=== PATIENT | female | born 1975 | race Caucasian/White ===

== ENCOUNTER 2018-06-24 13:07 | Emergency (ER) | payer OTHER ==
[~2018-06-24] VITALS: Ht 170.2 cm; Wt 80.7 kg
--- OUTSIDE RECORDS SUMMARY | 2018-06-24 13:12 | XMS REPORT | Clinical Summary ---
Author Author Admin, E Organization [facility] Address Unknown Phone Unavailable Allergies, Adverse Reactions, Alerts Allergy Name Reaction Description Start Date Severity Status Provider PENICILLIN swelling Critical Active Juan Diego Finley MD Conditions or Problems Problem Name Problem Code Onset Date Status Entry Date Provider Comment Standard Description Annotate Hypertension, essential 401.9 Active Al Medel MD Unspecified essential hypertension Allergic rhinitis, seasonal 477.0 Active Al Medel MD Allergic rhinitis due to pollen Migraine headache 346.90 Active Al Medel MD Migraine, unspecified, without mention of intractable migraine, without mention of status migrainosus Bipolar disorder 296.80 Active Al Medel MD Bipolar disorder, unspecified Knee pain, left 719.46 Active Al Medel MD Pain in joint involving lower leg HEALTH MAINTENANCE EXAM V70.0 Active Al Medel MD Routine general medical examination at a health care facility Bronchitis 490 Active Al Medel MD Bronchitis, not specified as acute or chronic ROUTINE GYNECOLOGICAL EXAMINATION V72.31 Active Al Medel MD Routine gynecological examination Vesicovaginal fistula 619.0 Active Juan Diego Finley MD Urinary-genital tract fistula, female Medication List Medication Instructions Start Date Stop Date Generic Name NDC Status Provider Patient Instruction CELEXA 10 MG ORAL TABLET 1 tablet by mouth daily CITALOPRAM HYDROBROMIDE 42077582231 Active Juan Diego Finley MD Active AMLODIPINE BESYLATE 10 MG ORAL TABLET 1 tablet by mouth daily AMLODIPINE BESYLATE 87877741609 Active Juan Diego Finley MD Active ALLOPURINOL 300 MG ORAL TABLET 1 tab by mouth daily ALLOPURINOL 28526466360 Active Juan Diego Finley MD Active NICOTINE 14 MG/24HR TRANSDERMAL PATCH 24 HOUR 1 patch daily - on in AM, off at HS - for smoking cessation NICOTINE 02396348124 Active Juan Diego Finley MD Active DOCUSATE SODIUM 100 MG ORAL CAPSULE 1 po BID DOCUSATE SODIUM 96365205627 Active Juan Diego Finley MD Active PHENAZOPYRIDINE HCL 100 MG ORAL TABLET 1 tab by mouth every 6 hour prn 03/30 PHENAZOPYRIDINE HCL 74481541721 Active Juan Diego Finley MD Active PROAIR HFA 108 (90 Base) MCG/ACT INHALATION AEROSOL SOLUTION 2 puffs four times a day as needed ALBUTEROL SULFATE 82654573313 Active Juan Diego Finley MD Active ALPRAZOLAM 0.25 MG ORAL TABLET 1 tablet by mouth twice a day as needed for stress ALPRAZOLAM 26536473105 Active Juan Diego Finley MD Active LISINOPRIL 20 MG ORAL TABLET 1 tablet by mouth daily LISINOPRIL 27479259894 No Longer Active Juan Diego Finley MD Active MOBIC 15 MG ORAL TABLET 1 tablet by mouth daily for knee pain MELOXICAM 87931784517 No Longer Active Juan Diego Finley MD Active GUAIFENESIN-CODEINE 100-10 MG/5ML ORAL SYRUP 1 tsp PO q6h PRN cough GUAIFENESIN-CODEINE 72583581245 No Longer Active Juan Diego Finley MD Active NICODERM CQ 21 MG/24HR TRANSDERMAL PATCH 24 HOUR Apply 1 patch daily NICOTINE 96044836075 No Longer Active Juan Diego Finley MD Active FLAGYL 500 MG ORAL TABLET Take 1 tablet BID X 7 days. METRONIDAZOLE 89136133091 No Longer Active Juan Diego Finley MD Active ZITHROMAX Z-NYLA 250 MG ORAL TABLET 2 today, then 1 daily for 4 days AZITHROMYCIN 61752292306 No Longer Active Al Medel MD Active FLAGYL 500 MG ORAL TABLET Take 1 tablet BID X 7 days. FLAGYL 500 MG ORAL TABLET 692802 METRONIDAZOLE Inactive NICODERM CQ 21 MG/24HR TRANSDERMAL PATCH 24 HOUR Apply 1 patch daily NICODERM CQ 21 MG/24HR TRANSDERMAL PATCH 24 HOUR NICOTINE Inactive GUAIFENESIN-CODEINE 100-10 MG/5ML ORAL SYRUP 1 tsp PO q6h PRN cough GUAIFENESIN-CODEINE 100-10 MG/5ML ORAL SYRUP 502155 GUAIFENESIN-CODEINE Inactive MOBIC 15 MG ORAL TABLET 1 tablet by mouth daily for knee pain MOBIC 15 MG ORAL TABLET 346873 MELOXICAM Inactive LISINOPRIL 20 MG ORAL TABLET 1 tablet by mouth daily LISINOPRIL 20 MG ORAL TABLET 400733 LISINOPRIL Inactive ZITHROMAX Z-NYLA 250 MG ORAL TABLET 2 today, then 1 daily for 4 days ZITHROMAX Z-NYLA 250 MG ORAL TABLET 038042 AZITHROMYCIN Inactive Vital Signs Date Name Value Unit Range Description blood pressure, diastolic 86 mm[Hg] BP romero blood pressure, systolic 128 mm[Hg] BP sys pulse rate E&M 74 /min Heart rate temperature E&M 97.8 [degF] Body temperature weight E&M 182 [lb_av] Weight Measured blood pressure, diastolic 88 mm[Hg] BP romero blood pressure, systolic 130 mm[Hg] BP sys pulse rate E&M 76 /min Heart rate temperature E&M 97.5 [degF] Body temperature weight E&M 182 [lb_av] Weight Measured Encounters Code Encounter Date Provider Facility CPT-96012 Level 3 Est. Patient 15:21:03 IMAGING MANAGER Juan Diego Finley MD [facility] CPT-70428 Level 2 Est. Patient 14:27:15 RENE Finley MD [facility] CPT-28555 Level 3 New Patient 15:33:11 CDT Juan Diego Finley MD [facility] CPT-06296 Level 3 Est. Patient 10:22:10 CDT Al Medel MD [facility] CPT-36638 Level 4 New Patient 11:23:27 CDT Al Medel MD [facility] Procedures Code Procedure Name Date Entry Date Standard Description CPT-31672 SP Tube Change 15:21:03 IMAGING MANAGER CPT-41688 SP Tube Change 14:27:16 IMAGING MANAGER CPT-47912 SP Tube Change 11:01:05 IMAGING MANAGER CPT-02865 Cystoscopy 15:33:11 CDT
--- OUTSIDE RECORDS SUMMARY | 2018-06-24 13:12 | XMS REPORT | Clinical Summary ---
Author Author Admin, E Organization [facility] Address Unknown Phone Unavailable Allergies, Adverse Reactions, [...] Generic Name NDC Status Provider Patient Instruction AMLODIPINE BESYLATE 10 MG ORAL TABLET 1 tablet by mouth daily AMLODIPINE BESYLATE 16040370397 Active Juan Diego Finley MD Active ALLOPURINOL 300 MG ORAL TABLET 1 tab by mouth daily ALLOPURINOL 39508858331 Active Juan Diego Finley MD Active NICOTINE 14 MG/24HR TRANSDERMAL PATCH 24 HOUR 1 patch daily - on in AM, off at HS - for smoking cessation NICOTINE 06630295471 Active Juan Diego Finley MD Active DOCUSATE SODIUM 100 MG ORAL CAPSULE 1 po BID DOCUSATE SODIUM 88012170531 Active Juan Diego Finley MD Active PHENAZOPYRIDINE HCL 100 MG ORAL TABLET 1 tab by mouth every 6 hour prn 03/30 PHENAZOPYRIDINE HCL 42237966389 Active Juan Diego Finley MD Active PROAIR HFA 108 (90 Base) MCG/ACT INHALATION AEROSOL SOLUTION 2 puffs four times a day as needed ALBUTEROL SULFATE 35256914680 Active Juan Diego Finley MD Active ALPRAZOLAM 0.25 MG ORAL TABLET 1 tablet by mouth twice a day as needed for stress ALPRAZOLAM 46648024847 Active Juan Diego Finley MD Active LISINOPRIL 20 MG ORAL TABLET 1 tablet by mouth daily LISINOPRIL 23924673099 No Longer Active Juan Diego Finley MD Active MOBIC 15 MG ORAL TABLET 1 tablet by mouth daily for knee pain MELOXICAM 79372148797 No Longer Active Juan Diego Finley MD Active GUAIFENESIN-CODEINE 100-10 MG/5ML ORAL SYRUP 1 tsp PO q6h PRN cough GUAIFENESIN-CODEINE 01044284806 No Longer Active Juan Diego Finley MD Active NICODERM CQ 21 MG/24HR TRANSDERMAL PATCH 24 HOUR Apply 1 patch daily NICOTINE 41664179283 No Longer Active Juan Diego Finley MD Active FLAGYL 500 MG ORAL TABLET Take 1 tablet BID X 7 days. METRONIDAZOLE 79431080128 No Longer Active Juan Diego Finley MD Active ZITHROMAX Z-NYLA 250 MG ORAL TABLET 2 today, then 1 daily for 4 days AZITHROMYCIN 75212707287 No Longer Active Al Medel MD Active FLAGYL 500 MG ORAL TABLET Take 1 tablet BID X 7 days. FLAGYL 500 MG ORAL TABLET 823956 METRONIDAZOLE Inactive NICODERM CQ 21 MG/24HR TRANSDERMAL PATCH 24 HOUR Apply 1 patch daily NICODERM CQ 21 MG/24HR TRANSDERMAL PATCH 24 HOUR 304556 NICOTINE Inactive GUAIFENESIN-CODEINE 100-10 MG/5ML ORAL SYRUP 1 tsp PO q6h PRN cough GUAIFENESIN-CODEINE 100-10 MG/5ML ORAL SYRUP 789309 GUAIFENESIN-CODEINE Inactive MOBIC 15 MG ORAL TABLET 1 tablet by mouth daily for knee pain MOBIC 15 MG ORAL TABLET 047646 MELOXICAM Inactive LISINOPRIL 20 MG ORAL TABLET 1 tablet by mouth daily LISINOPRIL 20 MG ORAL TABLET 597331 LISINOPRIL Inactive ZITHROMAX Z-NYLA 250 MG ORAL TABLET 2 today, then 1 daily for 4 days ZITHROMAX Z-NYLA 250 MG ORAL TABLET 167038 AZITHROMYCIN Inactive Vital Signs Date Name Value [...] Measured Encounters Code Encounter Date Provider Facility CPT-67882 Level 2 Est. Patient 14:27:15 IMAGING ADMINISTRATOR Juan Diego Finley MD [facility] CPT-68989 Level 3 New Patient 15:33:11 CDT Juan Diego Finley MD [facility] CPT-88928 Level 3 Est. Patient 10:22:10 CDT Al Medel MD [facility] CPT-47997 Level 4 New Patient 11:23:27 CDT Al Medel MD [facility] Procedures Code Procedure Name Date Entry Date Standard Description CPT-54020 SP Tube Change 14:27:16 IMAGING ADMINISTRATOR CPT-54636 SP Tube Change 11:01:05 IMAGING ADMINISTRATOR CPT-21803 Cystoscopy 15:33:11 CDT
--- OUTSIDE RECORDS SUMMARY | 2018-06-24 13:12 | XMS REPORT | Clinical Summary ---
Author Author Admin, E Organization [facility] Address Unknown Phone Unavailable Allergies, Adverse [...] 1 tablet by mouth daily CITALOPRAM HYDROBROMIDE 28507866549 Active Juan Diego Finley MD Active AMLODIPINE BESYLATE 10 MG ORAL TABLET 1 tablet by mouth daily AMLODIPINE BESYLATE 94243459959 Active Juan Diego Finley MD Active ALLOPURINOL 300 MG ORAL TABLET 1 tab by mouth daily ALLOPURINOL 68000946609 Active Juan Diego Finley MD Active NICOTINE 14 MG/24HR TRANSDERMAL PATCH 24 HOUR 1 patch daily - on in AM, off at HS - for smoking cessation NICOTINE 25337481502 Active Juan Diego Finley MD Active DOCUSATE SODIUM 100 MG ORAL CAPSULE 1 po BID DOCUSATE SODIUM 53128735153 Active Juan Diego Finley MD Active PHENAZOPYRIDINE HCL 100 MG ORAL TABLET 1 tab by mouth every 6 hour prn 03/30 PHENAZOPYRIDINE HCL 01435701364 Active Juan Diego Finley MD Active PROAIR HFA 108 (90 Base) MCG/ACT INHALATION AEROSOL SOLUTION 2 puffs four times a day as needed ALBUTEROL SULFATE 07166836577 Active Juan Diego Finley MD Active ALPRAZOLAM 0.25 MG ORAL TABLET 1 tablet by mouth twice a day as needed for stress ALPRAZOLAM 48846622829 Active Juan Diego Finley MD Active LISINOPRIL 20 MG ORAL TABLET 1 tablet by mouth daily LISINOPRIL 74593059993 No Longer Active Juan Diego Finley MD Active MOBIC 15 MG ORAL TABLET 1 tablet by mouth daily for knee pain MELOXICAM 19478776240 No Longer Active Juan Diego Finley MD Active GUAIFENESIN-CODEINE 100-10 MG/5ML ORAL SYRUP 1 tsp PO q6h PRN cough GUAIFENESIN-CODEINE 42940243814 No Longer Active Juan Diego Finley MD Active NICODERM CQ 21 MG/24HR TRANSDERMAL PATCH 24 HOUR Apply 1 patch daily NICOTINE 53808535769 No Longer Active Juan Diego Finley MD Active FLAGYL 500 MG ORAL TABLET Take 1 tablet BID X 7 days. METRONIDAZOLE 57311377065 No Longer Active Juan Diego Finley MD Active ZITHROMAX Z-NYLA 250 MG ORAL TABLET 2 today, then 1 daily for 4 days AZITHROMYCIN 68444242545 No Longer Active Al Medel MD Active FLAGYL 500 MG ORAL TABLET Take 1 tablet BID X 7 days. FLAGYL 500 MG ORAL TABLET 917171 METRONIDAZOLE Inactive NICODERM CQ 21 MG/24HR TRANSDERMAL PATCH 24 HOUR Apply 1 patch daily NICODERM CQ 21 MG/24HR TRANSDERMAL PATCH 24 HOUR NICOTINE Inactive GUAIFENESIN-CODEINE 100-10 MG/5ML ORAL SYRUP 1 tsp PO q6h PRN cough GUAIFENESIN-CODEINE 100-10 MG/5ML ORAL SYRUP 445072 GUAIFENESIN-CODEINE Inactive MOBIC 15 MG ORAL TABLET 1 tablet by mouth daily for knee pain MOBIC 15 MG ORAL TABLET 665844 MELOXICAM Inactive LISINOPRIL 20 MG ORAL TABLET 1 tablet by mouth daily LISINOPRIL 20 MG ORAL TABLET 748141 LISINOPRIL Inactive ZITHROMAX Z-NYLA 250 MG ORAL TABLET 2 today, then 1 daily for 4 days ZITHROMAX Z-NYLA 250 MG ORAL TABLET 321018 AZITHROMYCIN Inactive Vital Signs Date Name Value Unit Range Description blood pressure, diastolic 83 mm[Hg] BP romero blood pressure, systolic 125 mm[Hg] BP sys pulse rate E&M 73 /min Heart rate temperature E&M 97.5 [degF] Body temperature weight E&M 182 [lb_av] Weight Measured blood pressure, diastolic 86 mm[Hg] BP romero [...] Measured Encounters Code Encounter Date Provider Facility CPT-44707 Level 3 Est. Patient 15:21:03 SOCCER REFEREE Juan Diego Finley MD [facility] CPT-76893 Level 2 Est. Patient 14:27:15 SOCCER REFEREE Juan Diego Finley MD [facility] CPT-49096 Level 3 New Patient 15:33:11 CDT Juan Diego Finley MD [facility] CPT-73839 Level 3 Est. Patient 10:22:10 CDT Al Medel MD [facility] CPT-93240 Level 4 New Patient 11:23:27 CDT Al Medel MD [facility] Procedures Code Procedure Name Date Entry Date Standard Description CPT-93098 SP Tube Change 15:21:03 SOCCER REFEREE CPT-89825 SP Tube Change 14:27:16 SOCCER REFEREE CPT-69837 SP Tube Change 11:01:05 SOCCER REFEREE CPT-25376 Cystoscopy 15:33:11 CDT
--- OUTSIDE RECORDS SUMMARY | 2018-06-24 13:13 | XMS REPORT | Clinical Summary ---
Author Author Admin, E Organization [facility] Address Unknown Phone Unavailable Allergies, [...] Diego Finley MD Urinary-genital tract fistula, female Body Mass Index 30.0-30.9 Adult Active Juan Diego Finley MD Body Mass Index 30.0-30.9, adult Medication List Medication Instructions Start Date Stop Date Generic Name NDC Status Provider Patient Instruction ESTRADIOL 2 MG ORAL TABLET 1 tab once daily ESTRADIOL 90756320432 Active Juan Diego Finley MD Active ALPRAZOLAM 0.25 MG ORAL TABLET 1 tablet by mouth twice a day as needed for stress ALPRAZOLAM 11332977027 No Longer Active Juan Diego Finley MD Active PHENAZOPYRIDINE HCL 100 MG ORAL TABLET 1 tab by mouth every 6 hour prn 03/30 PHENAZOPYRIDINE HCL 78959746497 No Longer Active Juan Diego Finley MD Active NICOTINE 14 MG/24HR TRANSDERMAL PATCH 24 HOUR 1 patch daily - on in AM, off at HS - for smoking cessation NICOTINE 20370528265 No Longer Active Juan Diego Finley MD Active DOCUSATE SODIUM 100 MG ORAL CAPSULE 1 po BID DOCUSATE SODIUM 46212104896 No Longer Active Juan Diego Finley MD Active CELEXA 10 MG ORAL TABLET 1 tablet by mouth daily CITALOPRAM HYDROBROMIDE 74618494143 No Longer Active Juan Diego Finley MD Active AMLODIPINE BESYLATE 10 MG ORAL TABLET 1 tablet by mouth daily AMLODIPINE BESYLATE 45542919022 Active Juan Diego Finley MD Active ALLOPURINOL 300 MG ORAL TABLET 1 tab by mouth daily ALLOPURINOL 52346432649 Active Juan Diego Finley MD Active PROAIR HFA 108 (90 Base) MCG/ACT INHALATION AEROSOL SOLUTION 2 puffs four times a day as needed ALBUTEROL SULFATE 19575991036 Active Juan Diego Finley MD Active LISINOPRIL 20 MG ORAL TABLET 1 tablet by mouth daily LISINOPRIL 82617419869 No Longer Active Juan Diego Finley MD Active MOBIC 15 MG ORAL TABLET 1 tablet by mouth daily for knee pain MELOXICAM 84096215594 No Longer Active Juan Diego Finley MD Active GUAIFENESIN-CODEINE 100-10 MG/5ML ORAL SYRUP 1 tsp PO q6h PRN cough GUAIFENESIN-CODEINE 86901958304 No Longer Active Juan Diego Finley MD Active NICODERM CQ 21 MG/24HR TRANSDERMAL PATCH 24 HOUR Apply 1 patch daily NICOTINE 69833469852 No Longer Active Juan Diego Finley MD Active FLAGYL 500 MG ORAL TABLET Take 1 tablet BID X 7 days. METRONIDAZOLE 62113856361 No Longer Active Juan Diego Finley MD Active ZITHROMAX Z-NYLA 250 MG ORAL TABLET 2 today, then 1 daily for 4 days AZITHROMYCIN 40387052962 No Longer Active Al Medel MD Active FLAGYL 500 MG ORAL TABLET Take 1 tablet BID X 7 days. FLAGYL 500 MG ORAL TABLET 078877 METRONIDAZOLE Inactive NICODERM CQ 21 MG/24HR TRANSDERMAL PATCH 24 HOUR Apply 1 patch daily NICODERM CQ 21 MG/24HR TRANSDERMAL PATCH 24 HOUR 430168 NICOTINE Inactive GUAIFENESIN-CODEINE 100-10 MG/5ML ORAL SYRUP 1 tsp PO q6h PRN cough GUAIFENESIN-CODEINE 100-10 MG/5ML ORAL SYRUP 339012 GUAIFENESIN-CODEINE Inactive MOBIC 15 MG ORAL TABLET 1 tablet by mouth daily for knee pain MOBIC 15 MG ORAL TABLET 631862 MELOXICAM Inactive LISINOPRIL 20 MG ORAL TABLET 1 tablet by mouth daily LISINOPRIL 20 MG ORAL TABLET 506012 LISINOPRIL Inactive CELEXA 10 MG ORAL TABLET 1 tablet by mouth daily CELEXA 10 MG ORAL TABLET 160600 CITALOPRAM HYDROBROMIDE Inactive DOCUSATE SODIUM 100 MG ORAL CAPSULE 1 po BID DOCUSATE SODIUM 100 MG ORAL CAPSULE 8504766 DOCUSATE SODIUM Inactive NICOTINE 14 MG/24HR TRANSDERMAL PATCH 24 HOUR 1 patch daily - on in AM, off at HS - for smoking cessation NICOTINE 14 MG/24HR TRANSDERMAL PATCH 24 HOUR 346047 NICOTINE Inactive PHENAZOPYRIDINE HCL 100 MG ORAL TABLET 1 tab by mouth every 6 hour prn 03/30 PHENAZOPYRIDINE HCL 100 MG ORAL TABLET 0305554 PHENAZOPYRIDINE HCL Inactive ALPRAZOLAM 0.25 MG ORAL TABLET 1 tablet by mouth twice a day as needed for stress ALPRAZOLAM 0.25 MG ORAL TABLET 512805 ALPRAZOLAM Inactive ZITHROMAX Z-NYLA 250 MG ORAL TABLET 2 today, then 1 daily for 4 days ZITHROMAX Z-NYLA 250 MG ORAL TABLET 749970 AZITHROMYCIN Inactive Vital Signs Date Name Value Unit Range Description blood pressure, diastolic 71 mm[Hg] BP romero blood pressure, systolic 128 mm[Hg] BP sys height E&M 66.75 [in_us] Bdy height pulse rate E&M 72 /min Heart rate temperature E&M 98.8 [degF] Body temperature weight E&M 194 [lb_av] Weight Measured blood pressure, diastolic 83 mm[Hg] BP romero [...] Measured Encounters Code Encounter Date Provider Facility CPT-87697 Level 3 Est. Patient 14:30:00 EVER Finley MD [facility] CPT-22961 Level 3 Est. Patient 15:21:03 PROVIDER ENGAGEMENT EXECUTIVE Juan Diego Finley MD [facility] CPT-28736 Level 2 Est. Patient 14:27:15 PROVIDER ENGAGEMENT EXECUTIVE Juan Diego Finley MD [facility] CPT-05663 Level 3 New Patient 15:33:11 CDT Juan Diego Finley MD [facility] CPT-39922 Level 3 Est. Patient 10:22:10 CDT Al Medel MD [facility] CPT-31045 Level 4 New Patient 11:23:27 CDT Al Medel MD [facility] Procedures Code Procedure Name Date Entry Date Standard Description CPT-53345 SP Tube Change 15:21:03 PROVIDER ENGAGEMENT EXECUTIVE CPT-32234 SP Tube Change 14:27:16 PROVIDER ENGAGEMENT EXECUTIVE CPT-97823 SP Tube Change 11:01:05 PROVIDER ENGAGEMENT EXECUTIVE CPT-24973 Cystoscopy 15:33:11 CDT
--- OUTSIDE RECORDS SUMMARY | 2018-06-24 13:13 | XMS REPORT | Clinical Summary ---
Author Author Admin, E Organization [facility] Address Unknown Phone Unavailable Allergies, [...] 1 tablet by mouth daily CITALOPRAM HYDROBROMIDE 29900221159 Active Juan Diego Finley MD Active AMLODIPINE BESYLATE 10 MG ORAL TABLET 1 tablet by mouth daily AMLODIPINE BESYLATE 69447705162 Active Juan Diego Finley MD Active ALLOPURINOL 300 MG ORAL TABLET 1 tab by mouth daily ALLOPURINOL 85907272766 Active Juan Diego Finley MD Active NICOTINE 14 MG/24HR TRANSDERMAL PATCH 24 HOUR 1 patch daily - on in AM, off at HS - for smoking cessation NICOTINE 98915809282 Active Juan Diego Finley MD Active DOCUSATE SODIUM 100 MG ORAL CAPSULE 1 po BID DOCUSATE SODIUM 61709777647 Active Juan Diego Finley MD Active PHENAZOPYRIDINE HCL 100 MG ORAL TABLET 1 tab by mouth every 6 hour prn 03/30 PHENAZOPYRIDINE HCL 69110130680 Active Juan Diego Finley MD Active PROAIR HFA 108 (90 Base) MCG/ACT INHALATION AEROSOL SOLUTION 2 puffs four times a day as needed ALBUTEROL SULFATE 66896142044 Active Juan Diego Finley MD Active ALPRAZOLAM 0.25 MG ORAL TABLET 1 tablet by mouth twice a day as needed for stress ALPRAZOLAM 10398711077 Active Juan Diego Finley MD Active LISINOPRIL 20 MG ORAL TABLET 1 tablet by mouth daily LISINOPRIL 33086799387 No Longer Active Juan Diego Finley MD Active MOBIC 15 MG ORAL TABLET 1 tablet by mouth daily for knee pain MELOXICAM 61185779633 No Longer Active Juan Diego Finley MD Active GUAIFENESIN-CODEINE 100-10 MG/5ML ORAL SYRUP 1 tsp PO q6h PRN cough GUAIFENESIN-CODEINE 17052100153 No Longer Active Juan Diego Finley MD Active NICODERM CQ 21 MG/24HR TRANSDERMAL PATCH 24 HOUR Apply 1 patch daily NICOTINE 98521776137 No Longer Active Juan Diego Finley MD Active FLAGYL 500 MG ORAL TABLET Take 1 tablet BID X 7 days. METRONIDAZOLE 33882061817 No Longer Active Juan Diego Finley MD Active ZITHROMAX Z-NYLA 250 MG ORAL TABLET 2 today, then 1 daily for 4 days AZITHROMYCIN 18498541366 No Longer Active Al Medel MD Active FLAGYL 500 MG ORAL TABLET Take 1 tablet BID X 7 days. FLAGYL 500 MG ORAL TABLET 064827 METRONIDAZOLE Inactive NICODERM CQ 21 MG/24HR TRANSDERMAL PATCH 24 HOUR Apply 1 patch daily NICODERM CQ 21 MG/24HR TRANSDERMAL PATCH 24 HOUR NICOTINE Inactive GUAIFENESIN-CODEINE 100-10 MG/5ML ORAL SYRUP 1 tsp PO q6h PRN cough GUAIFENESIN-CODEINE 100-10 MG/5ML ORAL SYRUP 563157 GUAIFENESIN-CODEINE Inactive MOBIC 15 MG ORAL TABLET 1 tablet by mouth daily for knee pain MOBIC 15 MG ORAL TABLET 234324 MELOXICAM Inactive LISINOPRIL 20 MG ORAL TABLET 1 tablet by mouth daily LISINOPRIL 20 MG ORAL TABLET 582581 LISINOPRIL Inactive ZITHROMAX Z-NYLA 250 MG ORAL TABLET 2 today, then 1 daily for 4 days ZITHROMAX Z-NYLA 250 MG ORAL TABLET 215499 AZITHROMYCIN Inactive Vital Signs Date Name Value [...] Measured Encounters Code Encounter Date Provider Facility CPT-29122 Level 3 Est. Patient 15:21:03 [employer] SPRAY SUPERVISOR Juan Diego Finley MD [facility] CPT-70907 Level 2 Est. Patient 14:27:15 [employer]WN AND TREE SERVICE SPRAY SUPERVISOR Juan Diego Finley MD [facility] CPT-72180 Level 3 New Patient 15:33:11 CDT Juan Diego Finley MD [facility] CPT-15160 Level 3 Est. Patient 10:22:10 CDT Al Medel MD [facility] CPT-15524 Level 4 New Patient 11:23:27 CDT Al Medel MD [facility] Procedures Code Procedure Name Date Entry Date Standard Description CPT-23293 SP Tube Change 15:21:03 [employer] AND [employer] SERVICE SPRAY SUPERVISOR CPT-27819 SP Tube Change 14:27:16 LA[employer] AND [employer] SERVICE SPRAY SUPERVISOR CPT-00365 SP Tube Change 11:01:05 LA[employer] AND TREE SERVICE SPRAY SUPERVISOR CPT-09636 Cystoscopy 15:33:11 CDT
--- OUTSIDE RECORDS SUMMARY | 2018-06-24 13:13 | XMS REPORT | Clinical Summary ---
Author Author Admin, E Organization [facility] Address Unknown Phone Unavailable Allergies, Adverse Reactions, Alerts Allergy Name Reaction Description Start Date Severity Status Provider PENICILLIN swelling Critical Active Juan Diego Fniley MD Conditions or Problems Problem Name Problem [...] Mass Index 30.0-30.9 Adult Active Juan Diego Finlye MD Body Mass Index 30.0-30.9, adult Medication List Medication Instructions Start Date Stop Date Generic Name NDC Status Provider Patient Instruction ESTRADIOL 2 MG ORAL TABLET 1 tab once daily ESTRADIOL [id number] Active Juan Diego Finley MD Active ALPRAZOLAM 0.25 MG ORAL TABLET 1 tablet by mouth twice a day as needed for stress ALPRAZOLAM 90666897874 No Longer Active Juan Diego Finley MD Active PHENAZOPYRIDINE HCL 100 MG ORAL TABLET 1 tab by mouth every 6 hour prn 03/30 PHENAZOPYRIDINE HCL 12341036808 No Longer Active Juan Diego Finley MD Active NICOTINE 14 MG/24HR TRANSDERMAL PATCH 24 HOUR 1 patch daily - on in AM, off at HS - for smoking cessation NICOTINE 61329236587 No Longer Active Juan Diego Finley MD Active DOCUSATE SODIUM 100 MG ORAL CAPSULE 1 po BID DOCUSATE SODIUM 26353685442 No Longer Active Juan Diego Finley MD Active CELEXA 10 MG ORAL TABLET 1 tablet by mouth daily CITALOPRAM HYDROBROMIDE 37653194507 No Longer Active Juan Diego Finley MD Active AMLODIPINE BESYLATE 10 MG ORAL TABLET 1 tablet by mouth daily AMLODIPINE BESYLATE 69468498837 Active Juan Diego Finley MD Active ALLOPURINOL 300 MG ORAL TABLET 1 tab by mouth daily ALLOPURINOL 11145809384 Active Juan Diego Finley MD Active PROAIR HFA 108 (90 Base) MCG/ACT INHALATION AEROSOL SOLUTION 2 puffs four times a day as needed ALBUTEROL SULFATE 85427209433 Active Juan Diego Finley MD Active LISINOPRIL 20 MG ORAL TABLET 1 tablet by mouth daily LISINOPRIL 43531968614 No Longer Active Juan Diego Finley MD Active MOBIC 15 MG ORAL TABLET 1 tablet by mouth daily for knee pain MELOXICAM 81178767165 No Longer Active Juan Diego Finley MD Active GUAIFENESIN-CODEINE 100-10 MG/5ML ORAL SYRUP 1 tsp PO q6h PRN cough GUAIFENESIN-CODEINE 11357508914 No Longer Active Juan Diego Finley MD Active NICODERM CQ 21 MG/24HR TRANSDERMAL PATCH 24 HOUR Apply 1 patch daily NICOTINE 33708215791 No Longer Active Juan Diego Finley MD Active FLAGYL 500 MG ORAL TABLET Take 1 tablet BID X 7 days. METRONIDAZOLE 31810630889 No Longer Active Juan Diego Finley MD Active ZITHROMAX Z-NYLA 250 MG ORAL TABLET 2 today, then 1 daily for 4 days AZITHROMYCIN 52583276447 No Longer Active Al Medel MD Active FLAGYL 500 MG ORAL TABLET Take 1 tablet BID X 7 days. FLAGYL 500 MG ORAL TABLET 129320 METRONIDAZOLE Inactive NICODERM CQ 21 MG/24HR TRANSDERMAL PATCH 24 HOUR Apply 1 patch daily NICODERM CQ 21 MG/24HR TRANSDERMAL PATCH 24 HOUR 142555 NICOTINE Inactive GUAIFENESIN-CODEINE 100-10 MG/5ML ORAL SYRUP 1 tsp PO q6h PRN cough GUAIFENESIN-CODEINE 100-10 MG/5ML ORAL SYRUP 982678 GUAIFENESIN-CODEINE Inactive MOBIC 15 MG ORAL TABLET 1 tablet by mouth daily for knee pain MOBIC 15 MG ORAL TABLET 690599 MELOXICAM Inactive LISINOPRIL 20 MG ORAL TABLET 1 tablet by mouth daily LISINOPRIL 20 MG ORAL TABLET 975880 LISINOPRIL Inactive CELEXA 10 MG ORAL TABLET 1 tablet by mouth daily CELEXA 10 MG ORAL TABLET 049399 CITALOPRAM HYDROBROMIDE Inactive DOCUSATE SODIUM 100 MG ORAL CAPSULE 1 po BID DOCUSATE SODIUM 100 MG ORAL CAPSULE 0406027 DOCUSATE SODIUM Inactive NICOTINE 14 MG/24HR TRANSDERMAL PATCH 24 HOUR 1 patch daily - on in AM, off at HS - for smoking cessation NICOTINE 14 MG/24HR TRANSDERMAL PATCH 24 HOUR 497274 NICOTINE Inactive PHENAZOPYRIDINE HCL 100 MG ORAL TABLET 1 tab by mouth every 6 hour prn 03/30 PHENAZOPYRIDINE HCL 100 MG ORAL TABLET 8437702 PHENAZOPYRIDINE HCL Inactive ALPRAZOLAM 0.25 MG ORAL TABLET 1 tablet by mouth twice a day as needed for stress ALPRAZOLAM 0.25 MG ORAL TABLET 728846 ALPRAZOLAM Inactive ZITHROMAX Z-NYLA 250 MG ORAL TABLET 2 today, then 1 daily for 4 days ZITHROMAX Z-NYLA 250 MG ORAL TABLET 748826 AZITHROMYCIN Inactive Vital Signs Date Name Value [...] Measured Encounters Code Encounter Date Provider Facility CPT-17356 Level 3 Est. Patient 14:30:00 EVER Finley MD [facility] CPT-68322 Level 3 Est. Patient 15:21:03 CHIEF DIETITIAN Juan Diego Finley MD [facility] CPT-14526 Level 2 Est. Patient 14:27:15 CHIEF DIETITIAN Juan Diego Finley MD [facility] CPT-99052 Level 3 New Patient 15:33:11 CDT Juan Diego Finley MD [facility] CPT-93359 Level 3 Est. Patient 10:22:10 CDT Al Medel MD [facility] CPT-70568 Level 4 New Patient 11:23:27 CDT Al Medel MD [facility] Procedures Code Procedure Name Date Entry Date Standard Description CPT-41510 SP Tube Change 15:21:03 CHIEF DIETITIAN CPT-29636 SP Tube Change 14:27:16 CHIEF DIETITIAN CPT-35558 SP Tube Change 11:01:05 CHIEF DIETITIAN CPT-98803 Cystoscopy 15:33:11 CDT
--- OUTSIDE RECORDS SUMMARY | 2018-06-24 13:13 | XMS REPORT | Clinical Summary ---
[...] 1 tablet by mouth daily CITALOPRAM HYDROBROMIDE 73287720612 Active Juan Diego Finley MD Active AMLODIPINE BESYLATE 10 MG ORAL TABLET 1 tablet by mouth daily AMLODIPINE BESYLATE 56552336708 Active Juan Diego Finley MD Active ALLOPURINOL 300 MG ORAL TABLET 1 tab by mouth daily ALLOPURINOL 19453897842 Active Juan Diego Finley MD Active NICOTINE 14 MG/24HR TRANSDERMAL PATCH 24 HOUR 1 patch daily - on in AM, off at HS - for smoking cessation NICOTINE 22766313673 Active Juan Diego Finley MD Active DOCUSATE SODIUM 100 MG ORAL CAPSULE 1 po BID DOCUSATE SODIUM 43150873861 Active Juan Diego Finley MD Active PHENAZOPYRIDINE HCL 100 MG ORAL TABLET 1 tab by mouth every 6 hour prn 03/30 PHENAZOPYRIDINE HCL 35331193485 Active Juan Diego Finley MD Active PROAIR HFA 108 (90 Base) MCG/ACT INHALATION AEROSOL SOLUTION 2 puffs four times a day as needed ALBUTEROL SULFATE 70175068652 Active Juan Diego Finley MD Active ALPRAZOLAM 0.25 MG ORAL TABLET 1 tablet by mouth twice a day as needed for stress ALPRAZOLAM 03429592998 Active Juan Diego Finley MD Active LISINOPRIL 20 MG ORAL TABLET 1 tablet by mouth daily LISINOPRIL 16541268006 No Longer Active Juan Diego Finley MD Active MOBIC 15 MG ORAL TABLET 1 tablet by mouth daily for knee pain MELOXICAM 35738979168 No Longer Active Juan Diego Finley MD Active GUAIFENESIN-CODEINE 100-10 MG/5ML ORAL SYRUP 1 tsp PO q6h PRN cough GUAIFENESIN-CODEINE 76807688871 No Longer Active Juan Diego Finley MD Active NICODERM CQ 21 MG/24HR TRANSDERMAL PATCH 24 HOUR Apply 1 patch daily NICOTINE 22234903100 No Longer Active Juan Diego Finley MD Active FLAGYL 500 MG ORAL TABLET Take 1 tablet BID X 7 days. METRONIDAZOLE 62175611042 No Longer Active Juan Diego Finley MD Active ZITHROMAX Z-NYLA 250 MG ORAL TABLET 2 today, then 1 daily for 4 days AZITHROMYCIN 15508562020 No Longer Active Al Medel MD Active FLAGYL 500 MG ORAL TABLET Take 1 tablet BID X 7 days. FLAGYL 500 MG ORAL TABLET 611818 METRONIDAZOLE Inactive NICODERM CQ 21 MG/24HR TRANSDERMAL PATCH 24 HOUR Apply 1 patch daily NICODERM CQ 21 MG/24HR TRANSDERMAL PATCH 24 HOUR NICOTINE Inactive GUAIFENESIN-CODEINE 100-10 MG/5ML ORAL SYRUP 1 tsp PO q6h PRN cough GUAIFENESIN-CODEINE 100-10 MG/5ML ORAL SYRUP 570125 GUAIFENESIN-CODEINE Inactive MOBIC 15 MG ORAL TABLET 1 tablet by mouth daily for knee pain MOBIC 15 MG ORAL TABLET 874313 MELOXICAM Inactive LISINOPRIL 20 MG ORAL TABLET 1 tablet by mouth daily LISINOPRIL 20 MG ORAL TABLET 944839 LISINOPRIL Inactive ZITHROMAX Z-NYLA 250 MG ORAL TABLET 2 today, then 1 daily for 4 days ZITHROMAX Z-NYLA 250 MG ORAL TABLET 116550 AZITHROMYCIN Inactive Vital Signs Date Name Value [...] Measured Encounters Code Encounter Date Provider Facility CPT-73158 Level 3 Est. Patient 15:21:03 CLASSIFIED AD CLERK Juan Diego Finley MD [facility] CPT-83377 Level 2 Est. Patient 14:27:15 CLASSIFIED AD CLERK Juan Diego Finley MD [facility] CPT-49901 Level 3 New Patient 15:33:11 CDT Juan Diego Finley MD [facility] CPT-92002 Level 3 Est. Patient 10:22:10 CDT Al Medel MD [facility] CPT-98762 Level 4 New Patient 11:23:27 CDT Al Medel MD [facility] Procedures Code Procedure Name Date Entry Date Standard Description CPT-10578 SP Tube Change 15:21:03 CLASSIFIED AD CLERK CPT-63436 SP Tube Change 14:27:16 CLASSIFIED AD CLERK CPT-37586 SP Tube Change 11:01:05 CLASSIFIED AD CLERK CPT-59695 Cystoscopy 15:33:11 CDT
--- OUTSIDE RECORDS SUMMARY | 2018-06-24 13:14 | XMS REPORT | Clinical Summary ---
Author Author Admin, EDMUNDO Organization [facility] Address Unknown Phone Unavailable Allergies, Adverse Reactions, [...] Provider Patient Instruction AMLODIPINE BESYLATE 10 MG TABS 1 tablet by mouth daily AMLODIPINE BESYLATE 97305841366 Active Juan Diego Finley MD Active ALLOPURINOL 300 MG TAB 1 tab by mouth daily ALLOPURINOL 66032347483 Active Juan Diego Finley MD Active NICOTINE 14 MG/24HR PT24 1 patch daily - on in AM, off at HS - for smoking cessation NICOTINE 38978709121 Active Juan Diego Finley MD Active DOCUSATE SODIUM 100 MG ORAL CAPS 1 po BID DOCUSATE SODIUM 48231561432 Active Juan Diego Finley MD Active PHENAZOPYRIDINE HCL 100 MG ORAL TABLET 1 tab by mouth every 6 hour prn 03/30 PHENAZOPYRIDINE HCL 33437673985 Active Juan Diego Finley MD Active PROAIR HFA 108 (90 BASE) MCG/ACT AERS 2 puffs four times a day as needed 2016 ALBUTEROL SULFATE 86013574693 Active Juan Diego Finley MD Active ALPRAZOLAM 0.25 MG TAB 1 tablet by mouth twice a day as needed for stress ALPRAZOLAM 95604213209 Active Juan Diego Finley MD Active LISINOPRIL 20 MG TABS 1 tablet by mouth daily LISINOPRIL 45069407446 No Longer Active Juan Diego Finley MD Active MOBIC 15 MG TABS 1 tablet by mouth daily for knee pain MELOXICAM 40002012353 No Longer Active Juan Diego Finley MD Active GUAIFENESIN-CODEINE 100-10 MG/5ML SYRP 1 tsp PO q6h PRN cough GUAIFENESIN-CODEINE 01689900575 No Longer Active Juan Diego Finley MD Active NICODERM CQ 21 MG/24HR PT24 Apply 1 patch daily NICOTINE 82810814730 No Longer Active Juan Diego Finley MD Active FLAGYL 500 MG TABS Take 1 tablet BID X 7 days. METRONIDAZOLE 05791611890 No Longer Active Juan Diego Finley MD Active ZITHROMAX Z-NYLA 250 MG TABS 2 today, then 1 daily for 4 days 2013 AZITHROMYCIN 42264876260 No Longer Active Al Medel MD Active FLAGYL 500 MG TABS Take 1 tablet BID X 7 days. FLAGYL 500 MG TABS 004176 METRONIDAZOLE Inactive NICODERM CQ 21 MG/24HR PT24 Apply 1 patch daily NICODERM CQ 21 MG/24HR PT24 866061 NICOTINE Inactive GUAIFENESIN-CODEINE 100-10 MG/5ML SYRP 1 tsp PO q6h PRN cough GUAIFENESIN-CODEINE 100-10 MG/5ML SYRP 021405 GUAIFENESIN-CODEINE Inactive MOBIC 15 MG TABS 1 tablet by mouth daily for knee pain MOBIC 15 MG TABS 140749 MELOXICAM Inactive LISINOPRIL 20 MG TABS 1 tablet by mouth daily LISINOPRIL 20 MG TABS 096682 LISINOPRIL Inactive ZITHROMAX Z-NYLA 250 MG TABS 2 today, then 1 daily for 4 days 2013 ZITHROMAX Z-NYLA 250 MG TABS 096979 AZITHROMYCIN Inactive Encounters Code Encounter Date Provider Facility CPT-77387 Level 3 New Patient 15:33:11 CDT Juan Diego Finley MD [facility] CPT-92443 Level 3 Est. Patient 10:22:10 CDT Al Medel MD [facility] CPT-61562 Level 4 New Patient 11:23:27 CDT Al Medel MD [facility] Procedures Code Procedure Name Date Entry Date Standard Description CPT-24221 Cystoscopy 15:33:11 CDT
--- OUTSIDE RECORDS SUMMARY | 2018-06-24 13:14 | XMS REPORT | Clinical Summary ---
Author Author Admin, EDMUNDO Organization [facility] Address Unknown Phone Unavailable Allergies, Adverse Reactions, [...] 1 tablet by mouth daily AMLODIPINE BESYLATE 85018265713 Active Juan Diego Finley MD Active ALLOPURINOL 300 MG TAB 1 tab by mouth daily ALLOPURINOL 73252839263 Active Juan Diego Finley MD Active NICOTINE 14 MG/24HR PT24 1 patch daily - on in AM, off at HS - for smoking cessation NICOTINE 12778132247 Active Juan Diego Finley MD Active DOCUSATE SODIUM 100 MG ORAL CAPS 1 po BID DOCUSATE SODIUM 92751757305 Active Juan Diego Finley MD Active PHENAZOPYRIDINE HCL 100 MG ORAL TABLET 1 tab by mouth every 6 hour prn 03/30 PHENAZOPYRIDINE HCL 05898152074 Active Juan Diego Finley MD Active PROAIR HFA 108 (90 BASE) MCG/ACT AERS 2 puffs four times a day as needed 2016 ALBUTEROL SULFATE 38078343277 Active Juan Diego Finley MD Active ALPRAZOLAM 0.25 MG TAB 1 tablet by mouth twice a day as needed for stress ALPRAZOLAM 59916754318 Active Juan Diego Finley MD Active LISINOPRIL 20 MG TABS 1 tablet by mouth daily LISINOPRIL 82551795366 No Longer Active Juan Diego Finley MD Active MOBIC 15 MG TABS 1 tablet by mouth daily for knee pain MELOXICAM 47572135661 No Longer Active Juan Diego Finley MD Active GUAIFENESIN-CODEINE 100-10 MG/5ML SYRP 1 tsp PO q6h PRN cough GUAIFENESIN-CODEINE 56101750014 No Longer Active Juan Diego Finley MD Active NICODERM CQ 21 MG/24HR PT24 Apply 1 patch daily NICOTINE 62374727908 No Longer Active Juan Diego Finley MD Active FLAGYL 500 MG TABS Take 1 tablet BID X 7 days. METRONIDAZOLE 70557537536 No Longer Active Juan Diego Finley MD Active ZITHROMAX Z-NYLA 250 MG TABS 2 today, then 1 daily for 4 days 2013 AZITHROMYCIN 10642617834 No Longer Active Al Medel MD Active FLAGYL 500 MG TABS Take 1 tablet BID X 7 days. FLAGYL 500 MG TABS 557756 METRONIDAZOLE Inactive NICODERM CQ 21 MG/24HR PT24 Apply 1 patch daily NICODERM CQ 21 MG/24HR PT24 687718 NICOTINE Inactive GUAIFENESIN-CODEINE 100-10 MG/5ML SYRP 1 tsp PO q6h PRN cough GUAIFENESIN-CODEINE 100-10 MG/5ML SYRP 302068 GUAIFENESIN-CODEINE Inactive MOBIC 15 MG TABS 1 tablet by mouth daily for knee pain MOBIC 15 MG TABS 589796 MELOXICAM Inactive LISINOPRIL 20 MG TABS 1 tablet by mouth daily LISINOPRIL 20 MG TABS 675510 LISINOPRIL Inactive ZITHROMAX Z-NYLA 250 MG TABS 2 today, then 1 daily for 4 days 2013 ZITHROMAX Z-NYLA 250 MG TABS 580887 AZITHROMYCIN Inactive Encounters Code Encounter Date Provider Facility CPT-04463 Level 3 New Patient 15:33:11 CDT Juan Diego Finley MD [facility] CPT-86824 Level 3 Est. Patient 10:22:10 CDT Al Medel MD [facility] CPT-48397 Level 4 New Patient 11:23:27 CDT Al Medel MD [facility] Procedures Code Procedure Name Date Entry Date Standard Description CPT-37899 Cystoscopy 15:33:11 CDT
--- OUTSIDE RECORDS SUMMARY | 2018-06-24 13:14 | XMS REPORT | Clinical Summary ---
Author Author Admin, E Organization [facility] Address Unknown Phone Unavailable Allergies, [...] 1 tablet by mouth daily AMLODIPINE BESYLATE 41146628636 Active Juan Diego Finley MD Active ALLOPURINOL 300 MG ORAL TABLET 1 tab by mouth daily ALLOPURINOL 77411280319 Active Juan Diego Finley MD Active NICOTINE 14 MG/24HR TRANSDERMAL PATCH 24 HOUR 1 patch daily - on in AM, off at HS - for smoking cessation NICOTINE 42371213726 Active Juan Diego Finley MD Active DOCUSATE SODIUM 100 MG ORAL CAPSULE 1 po BID DOCUSATE SODIUM 71017997168 Active Juan Diego Finley MD Active PHENAZOPYRIDINE HCL 100 MG ORAL TABLET 1 tab by mouth every 6 hour prn 03/30 PHENAZOPYRIDINE HCL 58073840610 Active Juan Diego Finley MD Active PROAIR HFA 108 (90 Base) MCG/ACT INHALATION AEROSOL SOLUTION 2 puffs four times a day as needed ALBUTEROL SULFATE 25874608431 Active Juan Diego Finley MD Active ALPRAZOLAM 0.25 MG ORAL TABLET 1 tablet by mouth twice a day as needed for stress ALPRAZOLAM 88918645384 Active Juan Diego Finley MD Active LISINOPRIL 20 MG ORAL TABLET 1 tablet by mouth daily LISINOPRIL 34019993665 No Longer Active Juan Diego Finley MD Active MOBIC 15 MG ORAL TABLET 1 tablet by mouth daily for knee pain MELOXICAM 07335938622 No Longer Active Juan Diego Finley MD Active GUAIFENESIN-CODEINE 100-10 MG/5ML ORAL SYRUP 1 tsp PO q6h PRN cough GUAIFENESIN-CODEINE 58539230550 No Longer Active Juan Diego Finley MD Active NICODERM CQ 21 MG/24HR TRANSDERMAL PATCH 24 HOUR Apply 1 patch daily NICOTINE 80102270746 No Longer Active Juan Diego Finley MD Active FLAGYL 500 MG ORAL TABLET Take 1 tablet BID X 7 days. METRONIDAZOLE 59537580643 No Longer Active Juan Diego Finley MD Active ZITHROMAX Z-NYLA 250 MG ORAL TABLET 2 today, then 1 daily for 4 days AZITHROMYCIN 93068294280 No Longer Active Al Medel MD Active FLAGYL 500 MG ORAL TABLET Take 1 tablet BID X 7 days. FLAGYL 500 MG ORAL TABLET 242696 METRONIDAZOLE Inactive NICODERM CQ 21 MG/24HR TRANSDERMAL PATCH 24 HOUR Apply 1 patch daily NICODERM CQ 21 MG/24HR TRANSDERMAL PATCH 24 HOUR 359359 NICOTINE Inactive GUAIFENESIN-CODEINE 100-10 MG/5ML ORAL SYRUP 1 tsp PO q6h PRN cough GUAIFENESIN-CODEINE 100-10 MG/5ML ORAL SYRUP 264470 GUAIFENESIN-CODEINE Inactive MOBIC 15 MG ORAL TABLET 1 tablet by mouth daily for knee pain MOBIC 15 MG ORAL TABLET 771141 MELOXICAM Inactive LISINOPRIL 20 MG ORAL TABLET 1 tablet by mouth daily LISINOPRIL 20 MG ORAL TABLET 191414 LISINOPRIL Inactive ZITHROMAX Z-NYLA 250 MG ORAL TABLET 2 today, then 1 daily for 4 days ZITHROMAX Z-NYLA 250 MG ORAL TABLET 288425 AZITHROMYCIN Inactive Vital Signs Date Name Value [...] Measured Encounters Code Encounter Date Provider Facility CPT-64656 Level 2 Est. Patient 14:27:15 AIRLINE LOUNGE RECEPTIONIST Juan Diego Finley MD [facility] CPT-53072 Level 3 New Patient 15:33:11 CDT Juan Diego Finley MD [facility] CPT-75810 Level 3 Est. Patient 10:22:10 CDT Al Medel MD [facility] CPT-89239 Level 4 New Patient 11:23:27 CDT Al Medel MD [facility] Procedures Code Procedure Name Date Entry Date Standard Description CPT-44193 SP Tube Change 14:27:16 AIRLINE LOUNGE RECEPTIONIST CPT-26011 SP Tube Change 11:01:05 AIRLINE LOUNGE RECEPTIONIST CPT-98665 Cystoscopy 15:33:11 CDT
--- OUTSIDE RECORDS SUMMARY | 2018-06-24 13:14 | XMS REPORT | Clinical Summary ---
Author Author Admin, E Organization [facility] Address Unknown Phone Unavailable Allergies, Adverse Reactions, [...] ORAL TABLET 1 tab once daily ESTRADIOL 59142680384 Active Juan Diego Finley MD Active ALPRAZOLAM 0.25 MG ORAL TABLET 1 tablet by mouth twice a day as needed for stress ALPRAZOLAM 49636000717 No Longer Active Juan Diego Finley MD Active PHENAZOPYRIDINE HCL 100 MG ORAL TABLET 1 tab by mouth every 6 hour prn 03/30 PHENAZOPYRIDINE HCL 40561139142 No Longer Active Juan Diego Finley MD Active NICOTINE 14 MG/24HR TRANSDERMAL PATCH 24 HOUR 1 patch daily - on in AM, off at HS - for smoking cessation NICOTINE 41063722815 No Longer Active Juan Diego Finley MD Active DOCUSATE SODIUM 100 MG ORAL CAPSULE 1 po BID DOCUSATE SODIUM 17786022026 No Longer Active Juan Diego Finley MD Active CELEXA 10 MG ORAL TABLET 1 tablet by mouth daily CITALOPRAM HYDROBROMIDE 20914871548 No Longer Active Juan Diego Finley MD Active AMLODIPINE BESYLATE 10 MG ORAL TABLET 1 tablet by mouth daily AMLODIPINE BESYLATE 17536214482 Active Juan Diego Finley MD Active ALLOPURINOL 300 MG ORAL TABLET 1 tab by mouth daily ALLOPURINOL 40474926003 Active Juan Diego Finley MD Active PROAIR HFA 108 (90 Base) MCG/ACT INHALATION AEROSOL SOLUTION 2 puffs four times a day as needed ALBUTEROL SULFATE 06060946492 Active Juan Diego Finley MD Active LISINOPRIL 20 MG ORAL TABLET 1 tablet by mouth daily LISINOPRIL 40062968937 No Longer Active Juan Diego Finley MD Active MOBIC 15 MG ORAL TABLET 1 tablet by mouth daily for knee pain MELOXICAM 61926600923 No Longer Active Juan Diego Finley MD Active GUAIFENESIN-CODEINE 100-10 MG/5ML ORAL SYRUP 1 tsp PO q6h PRN cough GUAIFENESIN-CODEINE 67838449034 No Longer Active Juan Diego Finley MD Active NICODERM CQ 21 MG/24HR TRANSDERMAL PATCH 24 HOUR Apply 1 patch daily NICOTINE 92124566441 No Longer Active Juan Diego Finley MD Active FLAGYL 500 MG ORAL TABLET Take 1 tablet BID X 7 days. METRONIDAZOLE 73353375901 No Longer Active Juan Diego Finley MD Active ZITHROMAX Z-NYLA 250 MG ORAL TABLET 2 today, then 1 daily for 4 days AZITHROMYCIN 81593068803 No Longer Active Al Medel MD Active FLAGYL 500 MG ORAL TABLET Take 1 tablet BID X 7 days. FLAGYL 500 MG ORAL TABLET 875177 METRONIDAZOLE Inactive NICODERM CQ 21 MG/24HR TRANSDERMAL PATCH 24 HOUR Apply 1 patch daily NICODERM CQ 21 MG/24HR TRANSDERMAL PATCH 24 HOUR 394887 NICOTINE Inactive GUAIFENESIN-CODEINE 100-10 MG/5ML ORAL SYRUP 1 tsp PO q6h PRN cough GUAIFENESIN-CODEINE 100-10 MG/5ML ORAL SYRUP 665744 GUAIFENESIN-CODEINE Inactive MOBIC 15 MG ORAL TABLET 1 tablet by mouth daily for knee pain MOBIC 15 MG ORAL TABLET 673419 MELOXICAM Inactive LISINOPRIL 20 MG ORAL TABLET 1 tablet by mouth daily LISINOPRIL 20 MG ORAL TABLET 724504 LISINOPRIL Inactive CELEXA 10 MG ORAL TABLET 1 tablet by mouth daily CELEXA 10 MG ORAL TABLET 125693 CITALOPRAM HYDROBROMIDE Inactive DOCUSATE SODIUM 100 MG ORAL CAPSULE 1 po BID DOCUSATE SODIUM 100 MG ORAL CAPSULE 1729816 DOCUSATE SODIUM Inactive NICOTINE 14 MG/24HR TRANSDERMAL PATCH 24 HOUR 1 patch daily - on in AM, off at HS - for smoking cessation NICOTINE 14 MG/24HR TRANSDERMAL PATCH 24 HOUR 917698 NICOTINE Inactive PHENAZOPYRIDINE HCL 100 MG ORAL TABLET 1 tab by mouth every 6 hour prn 03/30 PHENAZOPYRIDINE HCL 100 MG ORAL TABLET 8020382 PHENAZOPYRIDINE HCL Inactive ALPRAZOLAM 0.25 MG ORAL TABLET 1 tablet by mouth twice a day as needed for stress ALPRAZOLAM 0.25 MG ORAL TABLET 174160 ALPRAZOLAM Inactive ZITHROMAX Z-NYLA 250 MG ORAL TABLET 2 today, then 1 daily for 4 days ZITHROMAX Z-NYLA 250 MG ORAL TABLET 770246 AZITHROMYCIN Inactive Vital Signs Date Name Value [...] Measured Encounters Code Encounter Date Provider Facility CPT-46528 Level 3 Est. Patient 14:30:00 EVER Finley MD [facility] CPT-14658 Level 3 Est. Patient 15:21:03 CUSTOMER ORDERS CLERK Juan Diego Finley MD [facility] CPT-79731 Level 2 Est. Patient 14:27:15 CUSTOMER ORDERS CLERK Juan Diego Finley MD [facility] CPT-75213 Level 3 New Patient 15:33:11 CDT Juan Diego Finley MD [facility] CPT-89486 Level 3 Est. Patient 10:22:10 CDT Al Medel MD [facility] CPT-19305 Level 4 New Patient 11:23:27 CDT Al Medel MD [facility] Procedures Code Procedure Name Date Entry Date Standard Description CPT-61118 SP Tube Change 15:21:03 CUSTOMER ORDERS CLERK CPT-83179 SP Tube Change 14:27:16 CUSTOMER ORDERS CLERK CPT-67008 SP Tube Change 11:01:05 CUSTOMER ORDERS CLERK CPT-99545 Cystoscopy 15:33:11 CDT
--- OUTSIDE RECORDS SUMMARY | 2018-06-24 13:14 | XMS REPORT | Clinical Summary ---
Author Author Admin, E Organization [facility] Address Unknown Phone Unavailable Allergies, Adverse Reactions, [...] 1 tablet by mouth daily CITALOPRAM HYDROBROMIDE 36844529407 Active Juan Diego Finley MD Active AMLODIPINE BESYLATE 10 MG ORAL TABLET 1 tablet by mouth daily AMLODIPINE BESYLATE 14378335675 Active Juan Diego Finley MD Active ALLOPURINOL 300 MG ORAL TABLET 1 tab by mouth daily ALLOPURINOL 12800155223 Active Juan Diego Finley MD Active NICOTINE 14 MG/24HR TRANSDERMAL PATCH 24 HOUR 1 patch daily - on in AM, off at HS - for smoking cessation NICOTINE 35972604900 Active Juan Diego Finley MD Active DOCUSATE SODIUM 100 MG ORAL CAPSULE 1 po BID DOCUSATE SODIUM 12128021321 Active Juan Diego Finley MD Active PHENAZOPYRIDINE HCL 100 MG ORAL TABLET 1 tab by mouth every 6 hour prn 03/30 PHENAZOPYRIDINE HCL 74104099811 Active Juan Diego Finley MD Active PROAIR HFA 108 (90 Base) MCG/ACT INHALATION AEROSOL SOLUTION 2 puffs four times a day as needed ALBUTEROL SULFATE 20259454765 Active Juan Diego Finley MD Active ALPRAZOLAM 0.25 MG ORAL TABLET 1 tablet by mouth twice a day as needed for stress ALPRAZOLAM 50121070892 Active Juan Diego Finley MD Active LISINOPRIL 20 MG ORAL TABLET 1 tablet by mouth daily LISINOPRIL 92951003504 No Longer Active Juan Diego Finley MD Active MOBIC 15 MG ORAL TABLET 1 tablet by mouth daily for knee pain MELOXICAM 33795048470 No Longer Active Juan Diego Finley MD Active GUAIFENESIN-CODEINE 100-10 MG/5ML ORAL SYRUP 1 tsp PO q6h PRN cough GUAIFENESIN-CODEINE 18695165144 No Longer Active Juan Diego Finley MD Active NICODERM CQ 21 MG/24HR TRANSDERMAL PATCH 24 HOUR Apply 1 patch daily NICOTINE 36904027587 No Longer Active Juan Diego Finley MD Active FLAGYL 500 MG ORAL TABLET Take 1 tablet BID X 7 days. METRONIDAZOLE 92291442245 No Longer Active Juan Diego Finley MD Active ZITHROMAX Z-NYLA 250 MG ORAL TABLET 2 today, then 1 daily for 4 days AZITHROMYCIN 08025302787 No Longer Active Al Medel MD Active FLAGYL 500 MG ORAL TABLET Take 1 tablet BID X 7 days. FLAGYL 500 MG ORAL TABLET 247218 METRONIDAZOLE Inactive NICODERM CQ 21 MG/24HR TRANSDERMAL PATCH 24 HOUR Apply 1 patch daily NICODERM CQ 21 MG/24HR TRANSDERMAL PATCH 24 HOUR NICOTINE Inactive GUAIFENESIN-CODEINE 100-10 MG/5ML ORAL SYRUP 1 tsp PO q6h PRN cough GUAIFENESIN-CODEINE 100-10 MG/5ML ORAL SYRUP 348690 GUAIFENESIN-CODEINE Inactive MOBIC 15 MG ORAL TABLET 1 tablet by mouth daily for knee pain MOBIC 15 MG ORAL TABLET 154594 MELOXICAM Inactive LISINOPRIL 20 MG ORAL TABLET 1 tablet by mouth daily LISINOPRIL 20 MG ORAL TABLET 976697 LISINOPRIL Inactive ZITHROMAX Z-NYLA 250 MG ORAL TABLET 2 today, then 1 daily for 4 days ZITHROMAX Z-NYLA 250 MG ORAL TABLET 515852 AZITHROMYCIN Inactive Vital Signs Date Name Value [...] Measured Encounters Code Encounter Date Provider Facility CPT-44221 Level 3 Est. Patient 15:21:03 AIRCRAFT ENGINE TECHNICIAN Juan Diego Finley MD [facility] CPT-79022 Level 2 Est. Patient 14:27:15 AIRCRAFT ENGINE TECHNICIAN Juan Diego Finley MD [facility] CPT-75213 Level 3 New Patient 15:33:11 CDT Juan Diego Finley MD [facility] CPT-63055 Level 3 Est. Patient 10:22:10 CDT Al Medel MD [facility] CPT-95840 Level 4 New Patient 11:23:27 CDT Al Medel MD [facility] Procedures Code Procedure Name Date Entry Date Standard Description CPT-40611 SP Tube Change 15:21:03 AIRCRAFT ENGINE TECHNICIAN CPT-43603 SP Tube Change 14:27:16 AIRCRAFT ENGINE TECHNICIAN CPT-85705 SP Tube Change 11:01:05 AIRCRAFT ENGINE TECHNICIAN CPT-76298 Cystoscopy 15:33:11 CDT
--- OUTSIDE RECORDS SUMMARY | 2018-06-24 13:15 | XMS REPORT | Clinical Summary ---
Author Author Admin, E Organization [facility] Address Unknown Phone Unavailable Allergies, [...] ORAL TABLET 1 tab once daily ESTRADIOL 89444156502 Active Juan Diego Finley MD Active ALPRAZOLAM 0.25 MG ORAL TABLET 1 tablet by mouth twice a day as needed for stress ALPRAZOLAM 17669514092 No Longer Active Juan Diego Finley MD Active PHENAZOPYRIDINE HCL 100 MG ORAL TABLET 1 tab by mouth every 6 hour prn 03/30 PHENAZOPYRIDINE HCL 84707936876 No Longer Active Juan Diego Finley MD Active NICOTINE 14 MG/24HR TRANSDERMAL PATCH 24 HOUR 1 patch daily - on in AM, off at HS - for smoking cessation NICOTINE 50286292819 No Longer Active Juan Diego Finley MD Active DOCUSATE SODIUM 100 MG ORAL CAPSULE 1 po BID DOCUSATE SODIUM 24691584903 No Longer Active Juan Diego Finley MD Active CELEXA 10 MG ORAL TABLET 1 tablet by mouth daily CITALOPRAM HYDROBROMIDE 87599745913 No Longer Active Juan Diego Finley MD Active AMLODIPINE BESYLATE 10 MG ORAL TABLET 1 tablet by mouth daily AMLODIPINE BESYLATE 52065854251 Active Juan Diego Finley MD Active ALLOPURINOL 300 MG ORAL TABLET 1 tab by mouth daily ALLOPURINOL 98902715921 Active Juan Diego Finley MD Active PROAIR HFA 108 (90 Base) MCG/ACT INHALATION AEROSOL SOLUTION 2 puffs four times a day as needed ALBUTEROL SULFATE 46416340621 Active Juan Diego Finley MD Active LISINOPRIL 20 MG ORAL TABLET 1 tablet by mouth daily LISINOPRIL 49306903897 No Longer Active Juan Diego Finley MD Active MOBIC 15 MG ORAL TABLET 1 tablet by mouth daily for knee pain MELOXICAM 36900032581 No Longer Active Juan Diego Finley MD Active GUAIFENESIN-CODEINE 100-10 MG/5ML ORAL SYRUP 1 tsp PO q6h PRN cough GUAIFENESIN-CODEINE 41639480436 No Longer Active Juan Diego Finley MD Active NICODERM CQ 21 MG/24HR TRANSDERMAL PATCH 24 HOUR Apply 1 patch daily NICOTINE 03991361937 No Longer Active Juan Diego Finley MD Active FLAGYL 500 MG ORAL TABLET Take 1 tablet BID X 7 days. METRONIDAZOLE 56807070558 No Longer Active Juan Diego Finley MD Active ZITHROMAX Z-NYLA 250 MG ORAL TABLET 2 today, then 1 daily for 4 days AZITHROMYCIN 09361666329 No Longer Active Al Medel MD Active FLAGYL 500 MG ORAL TABLET Take 1 tablet BID X 7 days. FLAGYL 500 MG ORAL TABLET 035064 METRONIDAZOLE Inactive NICODERM CQ 21 MG/24HR TRANSDERMAL PATCH 24 HOUR Apply 1 patch daily NICODERM CQ 21 MG/24HR TRANSDERMAL PATCH 24 HOUR 403076 NICOTINE Inactive GUAIFENESIN-CODEINE 100-10 MG/5ML ORAL SYRUP 1 tsp PO q6h PRN cough GUAIFENESIN-CODEINE 100-10 MG/5ML ORAL SYRUP 554547 GUAIFENESIN-CODEINE Inactive MOBIC 15 MG ORAL TABLET 1 tablet by mouth daily for knee pain MOBIC 15 MG ORAL TABLET 062462 MELOXICAM Inactive LISINOPRIL 20 MG ORAL TABLET 1 tablet by mouth daily LISINOPRIL 20 MG ORAL TABLET 013522 LISINOPRIL Inactive CELEXA 10 MG ORAL TABLET 1 tablet by mouth daily CELEXA 10 MG ORAL TABLET 656956 CITALOPRAM HYDROBROMIDE Inactive DOCUSATE SODIUM 100 MG ORAL CAPSULE 1 po BID DOCUSATE SODIUM 100 MG ORAL CAPSULE 9535738 DOCUSATE SODIUM Inactive NICOTINE 14 MG/24HR TRANSDERMAL PATCH 24 HOUR 1 patch daily - on in AM, off at HS - for smoking cessation NICOTINE 14 MG/24HR TRANSDERMAL PATCH 24 HOUR 175701 NICOTINE Inactive PHENAZOPYRIDINE HCL 100 MG ORAL TABLET 1 tab by mouth every 6 hour prn 03/30 PHENAZOPYRIDINE HCL 100 MG ORAL TABLET 0419853 PHENAZOPYRIDINE HCL Inactive ALPRAZOLAM 0.25 MG ORAL TABLET 1 tablet by mouth twice a day as needed for stress ALPRAZOLAM 0.25 MG ORAL TABLET 201730 ALPRAZOLAM Inactive ZITHROMAX Z-NYLA 250 MG ORAL TABLET 2 today, then 1 daily for 4 days ZITHROMAX Z-NYLA 250 MG ORAL TABLET 379553 AZITHROMYCIN Inactive Vital Signs Date Name Value [...] Measured Encounters Code Encounter Date Provider Facility CPT-95561 Level 3 Est. Patient 14:30:00 EVER Finley MD [facility] CPT-34494 Level 3 Est. Patient 15:21:03 WRITER PRODUCER Juan Diego Finley MD [facility] CPT-78004 Level 2 Est. Patient 14:27:15 WRITER PRODUCER Juan Diego Finley MD [facility] CPT-94296 Level 3 New Patient 15:33:11 CDT Juan Diego Finley MD [facility] CPT-24673 Level 3 Est. Patient 10:22:10 CDT Al Medel MD [facility] CPT-05614 Level 4 New Patient 11:23:27 CDT Al Medel MD [facility] Procedures Code Procedure Name Date Entry Date Standard Description CPT-50564 SP Tube Change 15:21:03 WRITER PRODUCER CPT-51964 SP Tube Change 14:27:16 WRITER PRODUCER CPT-52728 SP Tube Change 11:01:05 WRITER PRODUCER CPT-45461 Cystoscopy 15:33:11 CDT
--- OUTSIDE RECORDS SUMMARY | 2018-06-24 13:15 | XMS REPORT | Clinical Summary ---
Author Author Admin, EDMUNDO Organization [facility] Address Unknown Phone Unavailable Allergies, Adverse [...] 1 tablet by mouth daily AMLODIPINE BESYLATE 94135837645 Active Juan Diego Finley MD Active ALLOPURINOL 300 MG TAB 1 tab by mouth daily ALLOPURINOL 42517304699 Active Juan Diego Finley MD Active NICOTINE 14 MG/24HR PT24 1 patch daily - on in AM, off at HS - for smoking cessation NICOTINE 56042366743 Active Juan Diego Finley MD Active DOCUSATE SODIUM 100 MG ORAL CAPS 1 po BID DOCUSATE SODIUM 29355830215 Active Juan Diego Finley MD Active PHENAZOPYRIDINE HCL 100 MG ORAL TABLET 1 tab by mouth every 6 hour prn 03/30 PHENAZOPYRIDINE HCL 81045581397 Active Juan Diego Finley MD Active PROAIR HFA 108 (90 BASE) MCG/ACT AERS 2 puffs four times a day as needed 2016 ALBUTEROL SULFATE 56804558208 Active Juan Diego Finley MD Active ALPRAZOLAM 0.25 MG TAB 1 tablet by mouth twice a day as needed for stress ALPRAZOLAM 69040655373 Active Juan Diego Finley MD Active LISINOPRIL 20 MG TABS 1 tablet by mouth daily LISINOPRIL 41061243009 No Longer Active Juan Diego Finley MD Active MOBIC 15 MG TABS 1 tablet by mouth daily for knee pain MELOXICAM 08119424931 No Longer Active Juan Diego Finley MD Active GUAIFENESIN-CODEINE 100-10 MG/5ML SYRP 1 tsp PO q6h PRN cough GUAIFENESIN-CODEINE 40923668898 No Longer Active Juan Diego Finley MD Active NICODERM CQ 21 MG/24HR PT24 Apply 1 patch daily NICOTINE 69521190669 No Longer Active Juan Diego Finley MD Active FLAGYL 500 MG TABS Take 1 tablet BID X 7 days. METRONIDAZOLE 62589330072 No Longer Active Juan Diego Finley MD Active ZITHROMAX Z-NYLA 250 MG TABS 2 today, then 1 daily for 4 days 2013 AZITHROMYCIN 00656630614 No Longer Active Al Medel MD Active FLAGYL 500 MG TABS Take 1 tablet BID X 7 days. FLAGYL 500 MG TABS 728797 METRONIDAZOLE Inactive NICODERM CQ 21 MG/24HR PT24 Apply 1 patch daily NICODERM CQ 21 MG/24HR PT24 421693 NICOTINE Inactive GUAIFENESIN-CODEINE 100-10 MG/5ML SYRP 1 tsp PO q6h PRN cough GUAIFENESIN-CODEINE 100-10 MG/5ML SYRP 381006 GUAIFENESIN-CODEINE Inactive MOBIC 15 MG TABS 1 tablet by mouth daily for knee pain MOBIC 15 MG TABS 824916 MELOXICAM Inactive LISINOPRIL 20 MG TABS 1 tablet by mouth daily LISINOPRIL 20 MG TABS 808830 LISINOPRIL Inactive ZITHROMAX Z-NYLA 250 MG TABS 2 today, then 1 daily for 4 days 2013 ZITHROMAX Z-NYLA 250 MG TABS 952989 AZITHROMYCIN Inactive Encounters Code Encounter Date Provider Facility CPT-54335 Level 3 New Patient 15:33:11 CDT Juan Diego Finley MD [facility] CPT-15318 Level 3 Est. Patient 10:22:10 CDT Al Medel MD [facility] CPT-43144 Level 4 New Patient 11:23:27 CDT Al Medel MD [facility] Procedures Code Procedure Name Date Entry Date Standard Description CPT-32439 Cystoscopy 15:33:11 CDT
--- OUTSIDE RECORDS SUMMARY | 2018-06-24 13:15 | XMS REPORT | Clinical Summary ---
Author Author Admin, E Organization [facility] Address Unknown Phone Unavailable Allergies, Adverse Reactions, [...] 1 tablet by mouth daily AMLODIPINE BESYLATE 35894787668 Active Juan Diego Finley MD Active ALLOPURINOL 300 MG ORAL TABLET 1 tab by mouth daily ALLOPURINOL 08446662387 Active Juan Diego Finley MD Active NICOTINE 14 MG/24HR TRANSDERMAL PATCH 24 HOUR 1 patch daily - on in AM, off at HS - for smoking cessation NICOTINE 90157516035 Active Juan Diego Finley MD Active DOCUSATE SODIUM 100 MG ORAL CAPSULE 1 po BID DOCUSATE SODIUM 60352215282 Active Juan Diego Finley MD Active PHENAZOPYRIDINE HCL 100 MG ORAL TABLET 1 tab by mouth every 6 hour prn 03/30 PHENAZOPYRIDINE HCL 58365752044 Active Juan Diego Finley MD Active PROAIR HFA 108 (90 Base) MCG/ACT INHALATION AEROSOL SOLUTION 2 puffs four times a day as needed ALBUTEROL SULFATE 26332586421 Active Juan Diego Finley MD Active ALPRAZOLAM 0.25 MG ORAL TABLET 1 tablet by mouth twice a day as needed for stress ALPRAZOLAM 15210096205 Active Juan Diego Finley MD Active LISINOPRIL 20 MG ORAL TABLET 1 tablet by mouth daily LISINOPRIL 71970049480 No Longer Active Juan Diego Finley MD Active MOBIC 15 MG ORAL TABLET 1 tablet by mouth daily for knee pain MELOXICAM 99944101674 No Longer Active Juan Diego Finley MD Active GUAIFENESIN-CODEINE 100-10 MG/5ML ORAL SYRUP 1 tsp PO q6h PRN cough GUAIFENESIN-CODEINE 40336668086 No Longer Active Juan Diego Finley MD Active NICODERM CQ 21 MG/24HR TRANSDERMAL PATCH 24 HOUR Apply 1 patch daily NICOTINE 84625482533 No Longer Active Juan Diego Finley MD Active FLAGYL 500 MG ORAL TABLET Take 1 tablet BID X 7 days. METRONIDAZOLE 61686459701 No Longer Active Juan Diego Finley MD Active ZITHROMAX Z-NYLA 250 MG ORAL TABLET 2 today, then 1 daily for 4 days AZITHROMYCIN 76067289047 No Longer Active Al Medel MD Active FLAGYL 500 MG ORAL TABLET Take 1 tablet BID X 7 days. FLAGYL 500 MG ORAL TABLET 155817 METRONIDAZOLE Inactive NICODERM CQ 21 MG/24HR TRANSDERMAL PATCH 24 HOUR Apply 1 patch daily NICODERM CQ 21 MG/24HR TRANSDERMAL PATCH 24 HOUR 418672 NICOTINE Inactive GUAIFENESIN-CODEINE 100-10 MG/5ML ORAL SYRUP 1 tsp PO q6h PRN cough GUAIFENESIN-CODEINE 100-10 MG/5ML ORAL SYRUP 652422 GUAIFENESIN-CODEINE Inactive MOBIC 15 MG ORAL TABLET 1 tablet by mouth daily for knee pain MOBIC 15 MG ORAL TABLET 099201 MELOXICAM Inactive LISINOPRIL 20 MG ORAL TABLET 1 tablet by mouth daily LISINOPRIL 20 MG ORAL TABLET 451535 LISINOPRIL Inactive ZITHROMAX Z-NYLA 250 MG ORAL TABLET 2 today, then 1 daily for 4 days ZITHROMAX Z-NYLA 250 MG ORAL TABLET 356214 AZITHROMYCIN Inactive Vital Signs Date Name Value Unit Range Description blood pressure, diastolic 88 mm[Hg] BP romero blood pressure, systolic 130 mm[Hg] BP sys pulse rate E&M 76 /min Heart rate temperature E&M 97.5 [degF] Body temperature weight E&M 182 [lb_av] Weight Measured Encounters Code Encounter Date Provider Facility CPT-44419 Level 3 New Patient 15:33:11 CDT Juan Diego Finley MD [facility] CPT-73376 Level 3 Est. Patient 10:22:10 CDT Al Medel MD [facility] CPT-86519 Level 4 New Patient 11:23:27 CDT Al Medel MD [facility] Procedures Code Procedure Name Date Entry Date Standard Description CPT-28344 SP Tube Change 11:01:05 GROUP THERAPY COUNSELOR CPT-41085 Cystoscopy 15:33:11 CDT
--- OUTSIDE RECORDS SUMMARY | 2018-06-24 13:16 | XMS REPORT | Clinical Summary ---
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 Juan Digeo Finley MD Urinary-genital tract fistula, female Medication List Medication Instructions Start Date Stop Date Generic Name NDC Status Provider Patient Instruction AMLODIPINE BESYLATE 10 MG ORAL TABLET 1 tablet by mouth daily AMLODIPINE BESYLATE 76353867132 Active Juan Diego Finley MD Active ALLOPURINOL 300 MG ORAL TABLET 1 tab by mouth daily ALLOPURINOL 80995549578 Active Juan Diego Finley MD Active NICOTINE 14 MG/24HR TRANSDERMAL PATCH 24 HOUR 1 patch daily - on in AM, off at HS - for smoking cessation NICOTINE 36871800887 Active Juan Diego Finley MD Active DOCUSATE SODIUM 100 MG ORAL CAPSULE 1 po BID DOCUSATE SODIUM 53181977527 Active Juan Diego Finley MD Active PHENAZOPYRIDINE HCL 100 MG ORAL TABLET 1 tab by mouth every 6 hour prn 03/30 PHENAZOPYRIDINE HCL 11523139349 Active Juan Diego Finley MD Active PROAIR HFA 108 (90 Base) MCG/ACT INHALATION AEROSOL SOLUTION 2 puffs four times a day as needed ALBUTEROL SULFATE 33904568364 Active Juan Diego Finley MD Active ALPRAZOLAM 0.25 MG ORAL TABLET 1 tablet by mouth twice a day as needed for stress ALPRAZOLAM 06202215697 Active Juan Diego Finley MD Active LISINOPRIL 20 MG ORAL TABLET 1 tablet by mouth daily LISINOPRIL 18622755362 No Longer Active Juan Diego Finley MD Active MOBIC 15 MG ORAL TABLET 1 tablet by mouth daily for knee pain MELOXICAM 70151243712 No Longer Active Juan Diego Finley MD Active GUAIFENESIN-CODEINE 100-10 MG/5ML ORAL SYRUP 1 tsp PO q6h PRN cough GUAIFENESIN-CODEINE 54057867122 No Longer Active Juan Diego Finley MD Active NICODERM CQ 21 MG/24HR TRANSDERMAL PATCH 24 HOUR Apply 1 patch daily NICOTINE 41160866144 No Longer Active Juan Diego Finley MD Active FLAGYL 500 MG ORAL TABLET Take 1 tablet BID X 7 days. METRONIDAZOLE 20847007949 No Longer Active Juan Diego Finley MD Active ZITHROMAX Z-NYLA 250 MG ORAL TABLET 2 today, then 1 daily for 4 days AZITHROMYCIN 35118207420 No Longer Active Al Medel MD Active FLAGYL 500 MG ORAL TABLET Take 1 tablet BID X 7 days. FLAGYL 500 MG ORAL TABLET 107350 METRONIDAZOLE Inactive NICODERM CQ 21 MG/24HR TRANSDERMAL PATCH 24 HOUR Apply 1 patch daily NICODERM CQ 21 MG/24HR TRANSDERMAL PATCH 24 HOUR 271946 NICOTINE Inactive GUAIFENESIN-CODEINE 100-10 MG/5ML ORAL SYRUP 1 tsp PO q6h PRN cough GUAIFENESIN-CODEINE 100-10 MG/5ML ORAL SYRUP 941784 GUAIFENESIN-CODEINE Inactive MOBIC 15 MG ORAL TABLET 1 tablet by mouth daily for knee pain MOBIC 15 MG ORAL TABLET 570860 MELOXICAM Inactive LISINOPRIL 20 MG ORAL TABLET 1 tablet by mouth daily LISINOPRIL 20 MG ORAL TABLET 869472 LISINOPRIL Inactive ZITHROMAX Z-NYLA 250 MG ORAL TABLET 2 today, then 1 daily for 4 days ZITHROMAX Z-NYLA 250 MG ORAL TABLET 193979 AZITHROMYCIN Inactive Vital Signs Date Name Value Unit Range Description blood pressure, diastolic 88 mm[Hg] BP romero blood pressure, systolic 130 mm[Hg] BP sys pulse rate E&M 76 /min Heart rate temperature E&M 97.5 [degF] Body temperature weight E&M 182 [lb_av] Weight Measured Encounters Code Encounter Date Provider Facility CPT-58837 Level 3 New Patient 15:33:11 CDT Juan Diego Finley MD [facility] CPT-50100 Level 3 Est. 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
--- OUTSIDE RECORDS SUMMARY | 2018-06-24 13:16 | XMS REPORT | Clinical Summary ---
Author Author Admin, Teri Organization [facility] Address Unknown Phone Allergies, Adverse Reactions, Alerts Allergy Name Reaction Description Start Date Severity Status Provider PENICILLIN Critical Active Al Medel MD Conditions or Problems Problem Name Problem [...] Bronchitis, not specified as acute or chronic Medication List Medication Instructions Start Date Stop Date Generic Name NDC Status Provider Patient Instruction GUAIFENESIN-CODEINE 100-10 MG/5ML SYRP 1 tsp PO q6h PRN cough GUAIFENESIN-CODEINE 31028373705 Active Al Medel MD Active ZITHROMAX Z-NYLA 250 MG TABS 2 today, then 1 daily for 4 days 2013 AZITHROMYCIN 72562157827 No Longer Active Al Medel MD Active MOBIC 15 MG TABS 1 tablet by mouth daily for knee pain MELOXICAM 43157932229 Active Al Medel MD Active LISINOPRIL 20 MG TABS 1 tablet by mouth daily LISINOPRIL 15874018031 Active Al Medel MD Active ZITHROMAX Z-NYLA 250 MG TABS 2 today, then 1 daily for 4 days 2013 ZITHROMAX Z-NYLA 250 MG TABS 6746352 AZITHROMYCIN Inactive Vital Signs Date Name Value Unit Range Description blood pressure, diastolic 88 mm[Hg] BP romero blood pressure, systolic 143 mm[Hg] BP sys height E&M 66.75 [in_us] Bdy height pulse rate E&M 76 /min Heart rate temperature E&M 97.4 [degF] Body temperature weight E&M 178.38 [lb_av] Weight Measured Encounters Code Encounter Date Provider Facility CPT-97671 Level 4 New Patient 11:23:27 CDT Al Medel MD [facility]
--- OUTSIDE RECORDS SUMMARY | 2018-06-24 13:17 | XMS REPORT | Clinical Summary ---
Author Author Admin, EDMUNDO Organization [facility] Address Unknown Phone Allergies, Adverse Reactions, [...] Active Al Medel MD Routine gynecological examination Medication List Medication Instructions Start Date Stop Date Generic Name NDC Status Provider Patient Instruction FLAGYL 500 MG TABS Take 1 tablet BID X 7 days. METRONIDAZOLE 16622769805 Active Velia Fajardo Active NICODERM CQ 21 MG/24HR PT24 Apply 1 patch daily NICOTINE 21191212314 Active Al Medel MD Active GUAIFENESIN-CODEINE 100-10 MG/5ML SYRP 1 tsp PO q6h PRN cough GUAIFENESIN-CODEINE 16211633249 Active Al Medel MD Active ZITHROMAX Z-NYLA 250 MG TABS 2 today, then 1 daily for 4 days 2013 AZITHROMYCIN 63648101138 No Longer Active Al Medel MD Active MOBIC 15 MG TABS 1 tablet by mouth daily for knee pain MELOXICAM 09064417555 Active Al Medel MD Active LISINOPRIL 20 MG TABS 1 tablet by mouth daily LISINOPRIL 97043402726 Active Al Medel MD Active ZITHROMAX Z-NYLA 250 MG TABS 2 today, then 1 daily for 4 days 2013 ZITHROMAX Z-NYLA 250 MG TABS 7866607 AZITHROMYCIN Inactive Vital Signs Date Name Value Unit Range Description blood pressure, diastolic - 8462-4 115 mm[Hg] BP romero blood pressure, systolic - 8480-6 178 mm[Hg] BP sys height E&M - 8302-2 66.75 [in_us] Bdy height pulse rate E&M - 8867-4 76 /min Heart rate temperature E&M 97.3 [degF] Body temperature weight E&M - 3141-9 179.13 [lb_av] Weight Measured blood pressure, diastolic - 8462-4 88 mm[Hg] BP romero blood pressure, systolic - 8480-6 143 mm[Hg] BP sys height E&M - 8302-2 66.75 [in_us] Bdy height pulse rate E&M - 8867-4 76 /min Heart rate temperature E&M 97.4 [degF] Body temperature weight E&M - 3141-9 178.38 [lb_av] Weight Measured Diagnostic Results Date Name Value Unit Range Description Lab Report: CBC, Comp. Metabolic Panel, Lipid Panel - Chemistry sodium, serum 139 mmol/L 318-518 2442/05/21 potassium, serum 4.7 mmol/L 3.5-5.2 chloride, serum 102 mmol/L 98-107 carbon dioxide, venous blood 24.7 mmol/L 21.0-32.0 blood glucose 102 mg/dL 65-110 urea nitrogen, blood 13 mg/dL 7-18 creatinine, serum 0.80 mg/dL 0.60-1.30 alanine aminotransferase (SGPT), serum 27 U/L 12-78 aspartate aminotransferase (SGOT), serum 33 U/L 15-37 alkaline phosphatase, serum 70 U/L 50-136 calcium, serum 8.9 mg/dL 8.5-10.1 bilirubin, serum, total 0.60 mg/dL 0.00-1.00 cholesterol, serum 144 mg/dL 799-605 0231/05/21 triglyceride, serum, fasting 102 mg/dL 30-200 HDL cholesterol, serum 59 mg/dL 32-96 LDL cholesterol, serum 65 mg/dL 0-130 Lab Report: CBC, Comp. Metabolic Panel, Lipid Panel - Hematology leukocyte count, blood 7.6 10^3/MM^3 10*3/mm3 4.6-10.2 erythrocyte (RBC) count 4.26 10^6/MM^3 10*6/mm3 4.04-5.48 hemoglobin, blood 13.5 g/dL 12.0-16.0 hematocrit, blood 40.8 % 36.0-46.0 mean corpuscular volume, RBC 96 fL 80-97 mean corpuscular hemoglobin, RBC 31.8 pg 27.0-31.2 mean corpuscular hemoglobin concentration, RBC 33.2 G/DL % 31.8- 35.4 red blood cell distribution width 14.2 % 11.6-14.8 platelet count 195 10^3/MM^3 10*3/mm3 142-424 Lab Report: MICROALBUMIN - Chemistry albumin/creatinine ratio, urine < 30 mg/g mg/g{creat} 0-29 Lab Report: MICROALBUMIN - Lab microalbumin, urine 30 0-19 Encounters Code Encounter Date Provider Facility CPT-42419 Level 3 Est. Patient 10:22:10 CDT Al Medel MD [facility] CPT-92500 Level 4 New Patient 11:23:27 CDT Al Medel MD [facility]
--- OUTSIDE RECORDS SUMMARY | 2018-06-24 13:17 | XMS REPORT | Clinical Summary ---
Author Author Admin, EDMUNDO Organization [facility] Address Unknown Phone Allergies, Adverse Reactions, [...] Generic Name NDC Status Provider Patient Instruction NICODERM CQ 21 MG/24HR PT24 Apply 1 patch daily NICOTINE 77427538381 Active Al Medel MD Active GUAIFENESIN-CODEINE 100-10 MG/5ML SYRP 1 tsp PO q6h PRN cough GUAIFENESIN-CODEINE 73675339229 Active Al eMdel MD Active ZITHROMAX Z-NYLA 250 MG TABS 2 today, then 1 daily for 4 days 2013 AZITHROMYCIN 80425868575 No Longer Active Al Medel MD Active MOBIC 15 MG TABS 1 tablet by mouth daily for knee pain MELOXICAM 84956937613 Active Al Medel MD Active LISINOPRIL 20 MG TABS 1 tablet by mouth daily LISINOPRIL 34636317717 Active Al Medel MD Active ZITHROMAX Z-NYLA 250 MG TABS 2 today, then 1 daily for 4 days 2013 ZITHROMAX Z-NYLA 250 MG TABS [id number] AZITHROMYCIN Inactive Vital Signs Date Name Value [...] Panel - Chemistry sodium, serum 139 mmol/L 649-383 5995/05/21 potassium, serum 4.7 mmol/L 3.5-5.2 chloride, serum [...] 0.60 mg/dL 0.00-1.00 cholesterol, serum 144 mg/dL 115-985 7775/05/21 triglyceride, serum, fasting 102 mg/dL 30-200 HDL [...] 0-19 Encounters Code Encounter Date Provider Facility CPT-65523 Level 3 Est. Patient 10:22:10 CDT Al Medel MD [facility] CPT-55082 Level 4 New Patient 11:23:27 CDT Al Medel MD [facility]
--- OUTSIDE RECORDS SUMMARY | 2018-06-24 13:17 | XMS REPORT | Clinical Summary ---
Author Author Admin, EDMUNDO Organization [facility] Address Unknown Phone Allergies, Adverse Reactions, Alerts [...] MG/24HR PT24 Apply 1 patch daily NICOTINE 88152736550 Active Al Medel MD Active GUAIFENESIN-CODEINE 100-10 MG/5ML SYRP 1 tsp PO q6h PRN cough GUAIFENESIN-CODEINE 93988804294 Active Al Medel MD Active ZITHROMAX Z-NYLA 250 MG TABS 2 today, then 1 daily for 4 days 2013 AZITHROMYCIN 12294440748 No Longer Active Al Medel MD Active MOBIC 15 MG TABS 1 tablet by mouth daily for knee pain MELOXICAM 02260866280 Active Al Medel MD Active LISINOPRIL 20 MG TABS 1 tablet by mouth daily LISINOPRIL 61491984550 Active Al Medel MD Active ZITHROMAX Z-NYLA 250 MG TABS 2 today, then 1 daily for 4 days 2013 ZITHROMAX Z-NYLA 250 MG TABS 8524019 AZITHROMYCIN Inactive Vital Signs Date Name Value Unit Range Description blood pressure, diastolic 88 mm[Hg] BP romero blood pressure, systolic 143 mm[Hg] BP sys height E&M 66.75 [in_us] Bdy height pulse rate E&M 76 /min Heart rate temperature E&M 97.4 [degF] Body temperature weight E&M 178.38 [lb_av] Weight Measured Encounters Code Encounter Date Provider Facility CPT-06593 Level 3 Est. Patient 10:22:10 CDT Al Medel MD [facility] CPT-45214 Level 4 New Patient 11:23:27 CDT Al Medel MD [facility]
--- OUTSIDE RECORDS SUMMARY | 2018-06-24 13:17 | XMS REPORT | Clinical Summary ---
[...] MG/24HR PT24 Apply 1 patch daily NICOTINE 64479121548 Active Al Medel MD Active GUAIFENESIN-CODEINE 100-10 MG/5ML SYRP 1 tsp PO q6h PRN cough GUAIFENESIN-CODEINE 35055363765 Active Al Medel MD Active ZITHROMAX Z-NYLA 250 MG TABS 2 today, then 1 daily for 4 days 2013 AZITHROMYCIN 56901701636 No Longer Active Al Medel MD Active MOBIC 15 MG TABS 1 tablet by mouth daily for knee pain MELOXICAM 28712724751 Active Al Medel MD Active LISINOPRIL 20 MG TABS 1 tablet by mouth daily LISINOPRIL 46746095673 Active Al Medel MD Active ZITHROMAX Z-NYLA 250 MG TABS 2 today, then 1 daily for 4 days 2013 ZITHROMAX Z-NYLA 250 MG TABS 5959303 AZITHROMYCIN Inactive Vital Signs Date Name Value Unit Range Description blood pressure, diastolic 115 mm[Hg] BP romero blood pressure, systolic 178 mm[Hg] BP sys height E&M 66.75 [in_us] Bdy height pulse rate E&M 76 /min Heart rate temperature E&M 97.3 [degF] Body temperature weight E&M 179.13 [lb_av] Weight Measured blood pressure, diastolic 88 mm[Hg] BP romero blood pressure, systolic 143 mm[Hg] BP sys height E&M 66.75 [in_us] Bdy height pulse rate E&M 76 /min Heart rate temperature E&M 97.4 [degF] Body temperature weight E&M 178.38 [lb_av] Weight Measured Diagnostic Results Date Name Value Unit Range Description Lab Report: CBC, Comp. Metabolic Panel, Lipid Panel - Chemistry sodium, serum 139 mmol/L 706-580 4078/05/21 potassium, serum 4.7 mmol/L 3.5-5.2 chloride, serum [...] 0.60 mg/dL 0.00-1.00 cholesterol, serum 144 mg/dL 606-883 4788/05/21 triglyceride, serum, fasting 102 mg/dL 30-200 HDL [...] 0-19 Encounters Code Encounter Date Provider Facility CPT-90091 Level 3 Est. Patient 10:22:10 CDT Al Medel MD [facility] CPT-09922 Level 4 New Patient 11:23:27 CDT Al Medel MD [facility]
--- OUTSIDE RECORDS SUMMARY | 2018-06-24 13:17 | XMS REPORT | Clinical Summary ---
Author Author Admin, EDMUNDO Organization [facility] Address Unknown Phone Allergies, Adverse Reactions, [...] 1 tablet BID X 7 days. METRONIDAZOLE 81665413574 Active Velia Fajardo Active NICODERM CQ 21 MG/24HR PT24 Apply 1 patch daily NICOTINE 66969411503 Active Al Medel MD Active GUAIFENESIN-CODEINE 100-10 MG/5ML SYRP 1 tsp PO q6h PRN cough GUAIFENESIN-CODEINE 61316757851 Active Al Medel MD Active ZITHROMAX Z-NYLA 250 MG TABS 2 today, then 1 daily for 4 days 2013 AZITHROMYCIN 39162282405 No Longer Active Al Medel MD Active MOBIC 15 MG TABS 1 tablet by mouth daily for knee pain MELOXICAM 62971822190 Active Al Medel MD Active LISINOPRIL 20 MG TABS 1 tablet by mouth daily LISINOPRIL 55187521874 Active Al Medel MD Active ZITHROMAX Z-NYLA 250 MG TABS 2 today, then 1 daily for 4 days 2013 ZITHROMAX Z-NYLA 250 MG TABS 3019354 AZITHROMYCIN Inactive Vital Signs Date Name Value [...] Panel - Chemistry sodium, serum 139 mmol/L 599-649 7465/05/21 potassium, serum 4.7 mmol/L 3.5-5.2 chloride, serum [...] 0.60 mg/dL 0.00-1.00 cholesterol, serum 144 mg/dL 279-893 1140/05/21 triglyceride, serum, fasting 102 mg/dL 30-200 HDL [...] 0-19 Encounters Code Encounter Date Provider Facility CPT-30043 Level 3 Est. Patient 10:22:10 CDT Al Medel MD [facility] CPT-15318 Level 4 New Patient 11:23:27 CDT Al Medel MD [facility]
--- OUTSIDE RECORDS SUMMARY | 2018-06-24 13:17 | XMS REPORT | Clinical Summary ---
Author Author Admin, EDMUNDO Organization [facility] Address Unknown Phone Allergies, Adverse Reactions, Alerts [...] MG/24HR PT24 Apply 1 patch daily NICOTINE 91000280285 Active Al Medel MD Active GUAIFENESIN-CODEINE 100-10 MG/5ML SYRP 1 tsp PO q6h PRN cough GUAIFENESIN-CODEINE 04286421456 Active Al Medel MD Active ZITHROMAX Z-NYLA 250 MG TABS 2 today, then 1 daily for 4 days 2013 AZITHROMYCIN 14454342757 No Longer Active Al Medel MD Active MOBIC 15 MG TABS 1 tablet by mouth daily for knee pain MELOXICAM 08968438218 Active Al Medel MD Active LISINOPRIL 20 MG TABS 1 tablet by mouth daily LISINOPRIL 76777273710 Active Al Medel MD Active ZITHROMAX Z-NYLA 250 MG TABS 2 today, then 1 daily for 4 days 2013 ZITHROMAX Z-NYLA 250 MG TABS 5155051 AZITHROMYCIN Inactive Vital Signs Date Name Value [...] Panel - Chemistry sodium, serum 139 mmol/L 581-517 2574/05/21 potassium, serum 4.7 mmol/L 3.5-5.2 chloride, serum [...] 0.60 mg/dL 0.00-1.00 cholesterol, serum 144 mg/dL 023-189 1816/05/21 triglyceride, serum, fasting 102 mg/dL 30-200 HDL [...] 0-19 Encounters Code Encounter Date Provider Facility CPT-87624 Level 3 Est. Patient 10:22:10 CDT Al Medel MD [facility] CPT-00877 Level 4 New Patient 11:23:27 CDT Al Medel MD [facility]
--- OUTSIDE RECORDS SUMMARY | 2018-06-24 13:18 | XMS REPORT | Clinical Summary ---
Author Author Admin, EDMUNOD Organization [facility] Address Unknown Phone Allergies, Adverse Reactions, Alerts [...] MG/24HR PT24 Apply 1 patch daily NICOTINE 26669675950 Active Al Medel MD Active GUAIFENESIN-CODEINE 100-10 MG/5ML SYRP 1 tsp PO q6h PRN cough GUAIFENESIN-CODEINE 20009413565 Active Al Medel MD Active ZITHROMAX Z-NYLA 250 MG TABS 2 today, then 1 daily for 4 days 2013 AZITHROMYCIN 52422831708 No Longer Active Al Medel MD Active MOBIC 15 MG TABS 1 tablet by mouth daily for knee pain MELOXICAM 98717141466 Active Al Medel MD Active LISINOPRIL 20 MG TABS 1 tablet by mouth daily LISINOPRIL 90458792450 Active Al Medel MD Active ZITHROMAX Z-NYLA 250 MG TABS 2 today, then 1 daily for 4 days 2013 ZITHROMAX Z-NYLA 250 MG TABS 5026563 AZITHROMYCIN Inactive Vital Signs Date Name Value [...] Panel - Chemistry sodium, serum 139 mmol/L 035-998 7925/05/21 potassium, serum 4.7 mmol/L 3.5-5.2 chloride, serum [...] 0.60 mg/dL 0.00-1.00 cholesterol, serum 144 mg/dL 728-456 4939/05/21 triglyceride, serum, fasting 102 mg/dL 30-200 HDL [...] 0-19 Encounters Code Encounter Date Provider Facility CPT-78145 Level 3 Est. Patient 10:22:10 CDT Al Medel MD [facility] CPT-41630 Level 4 New Patient 11:23:27 CDT Al Medel MD [facility]
--- OUTSIDE RECORDS SUMMARY | 2018-06-24 13:18 | XMS REPORT | Clinical Summary ---
Author Author Admin, EDMUNDO Organization [facility] Address Unknown Phone Allergies, Adverse Reactions, Alerts [...] 1 tablet BID X 7 days. METRONIDAZOLE 79889704819 Active Velia Fajardo Active NICODERM CQ 21 MG/24HR PT24 Apply 1 patch daily NICOTINE 20810553141 Active Al Medel MD Active GUAIFENESIN-CODEINE 100-10 MG/5ML SYRP 1 tsp PO q6h PRN cough GUAIFENESIN-CODEINE 25823895067 Active Al Medel MD Active ZITHROMAX Z-NYLA 250 MG TABS 2 today, then 1 daily for 4 days 2013 AZITHROMYCIN 01402186478 No Longer Active Al Medel MD Active MOBIC 15 MG TABS 1 tablet by mouth daily for knee pain MELOXICAM 85439732946 Active Al Medel MD Active LISINOPRIL 20 MG TABS 1 tablet by mouth daily LISINOPRIL 60101799578 Active Al Medel MD Active ZITHROMAX Z-NYLA 250 MG TABS 2 today, then 1 daily for 4 days 2013 ZITHROMAX Z-NYLA 250 MG TABS 7184818 AZITHROMYCIN Inactive Vital Signs Date Name Value [...] Panel - Chemistry sodium, serum 139 mmol/L 374-360 5063/05/21 potassium, serum 4.7 mmol/L 3.5-5.2 chloride, serum [...] 0.60 mg/dL 0.00-1.00 cholesterol, serum 144 mg/dL 396-491 0387/05/21 triglyceride, serum, fasting 102 mg/dL 30-200 HDL cholesterol, serum 59 mg/dL 32-96 LDL cholesterol, serum 65 mg/dL 0-130 Lab Report: CBC, Comp. Metabolic Panel, Lipid Panel - Hematology mean corpuscular hemoglobin, RBC 31.8 pg 27.0-31.2 mean corpuscular hemoglobin concentration, RBC 33.2 G/DL % 31.8- 35.4 red blood cell distribution width 14.2 % 11.6-14.8 platelet count 195 10^3/MM^3 10*3/mm3 122-787 5161/05/21 mean corpuscular volume, RBC 96 fL 80-97 hematocrit, blood 40.8 % 36.0-46.0 hemoglobin, blood 13.5 g/dL 12.0-16.0 erythrocyte (RBC) count 4.26 10^6/MM^3 10*6/mm3 4.04-5.48 leukocyte count, blood 7.6 10^3/MM^3 10*3/mm3 4.6-10.2 Lab Report: MICROALBUMIN - Chemistry albumin/creatinine ratio, urine < 30 mg/g mg/g{creat} 0-29 Lab Report: MICROALBUMIN - Lab microalbumin, urine 30 0-19 Encounters Code Encounter Date Provider Facility CPT-47725 Level 3 Est. Patient 10:22:10 CDT Al Medel MD [facility] CPT-42101 Level 4 New Patient 11:23:27 CDT Al Medel MD [facility]
--- OUTSIDE RECORDS SUMMARY | 2018-06-24 13:18 | XMS REPORT | Continuity of Care Document ---
Author Author [facility] Organization [facility] Address Unknown Phone Unavailable Allergies Active Description Code Type Severity Reaction Onset Reported/Identified Relationship to Patient Clinical Status Yes penicillin Drug Allergy Moderate to severe N/A 03/01/2017 Medications Medication Packaging Start Date Stop Date Route Dosage Sig estradiol 0.5 mg tablet Tablet 0.5 mg take 1 (one) Tablet by Oral route daily allopurinol 100 mg tablet Tablet 100 mg take 1 (one) Tablet by Oral route daily amLODIPine 10 mg tablet Blister 10 mg take 1 (one) Tablet by Oral route daily Problems Date Dx Coded Attending Type Code Diagnosis Diagnosed By 03/04/2017 NOY HUNG MD N82.0 Vesicovaginal fistula RENAY WALL MD 03/04/2017 NOY HUNG MD R32 Unspecified urinary incontinence RENAY WALL MD 03/04/2017 NOY HUNG MD Z90.710 Acquired absence of both cervix and uterus RENAY WALL MD 03/30/2017 Juan Diego Ramirez MD N82.0 Vesicovaginal fistula 08/20/2017 NOY HUNG MD N82.0 Vesicovaginal fistula NOY HUNG MD 08/20/2017 NOY HUNG MD Z90.710 Acquired absence of both cervix and uterus NOY HUNG MD 09/01/2017 NOY HUNG F17.210 Nicotine dependence, cigarettes, uncomplicated 09/01/2017 NOY HUNG I10 Essential (primary) hypertension 09/01/2017 NOY HUNG N82.0 Vesicovaginal fistula 09/12/2017 NOY HUNG MD N82.0 Vesicovaginal fistula EBEN IRVING 09/12/2017 NOY HUNG MD N82.0 Vesicovaginal fistula NOY HUNG MD 09/12/2017 NOY HUNG MD Z46.6 Encounter for fitting and adjustment of urinary device NOY HUNG MD 10/12/2017 NOY HUNG MD N82.0 Vesicovaginal fistula NOY HUNG MD 10/12/2017 NOY HUNG MD R32 Unspecified urinary incontinence NOY HUNG MD 10/12/2017 NOY HUNG MD Z09 Encounter for follow-up examination after completed treatment for conditions other than malignant neoplasm NOY HUNG MD 10/12/2017 NOY HUNG MD Z46.6 Encounter for fitting and adjustment of urinary device NOY HUNG MD 10/12/2017 NOY HUNG MD Z90.710 Acquired absence of both cervix and uterus NOY HUNG MD 10/17/2017 Tushar NGUYEN, Juan Diego Garza Z68.30 Body Mass Index 30.0-30.9 Adult 10/19/2017 NOY HUNG MD N82.0 Vesicovaginal fistula NOY HNUG MD 10/19/2017 NOY HUNG MD Z46.6 Encounter for fitting and adjustment of urinary device NOY HUNG MD Procedures Code [place] [address] OFFICE OR OTHER OUTPATIENT VISIT FOR THE EVALUATION AND MANAGEMENT OF ANEW PATIENT, WHICH REQUIRES RENAY SOLIS MD 03/04/2017 39051 OFFICE OR OTHER OUTPATIENT VISIT FOR THE EVALUATION AND MANAGEMENT OF ANEW PATIENT, WHICH REQUIRES RENAY SOLIS MD 03/14/2017 62913 CYSTOURETHROSCOPY (SEPARATE PROCEDURE) NOY HUNG MD 08/20/2017 68491 OFFICE OR OTHER OUTPATIENT VISIT FOR THE EVALUATION AND MANAGEMENT OF ANESTABLISHED PATIENT, WHICH R NOY HUNG MD 08/20/2017 [id number] Change Drainage Device in Bladder, External Approach NOY HUNG 2017 [id number] Dilation of Bilateral Ureters with Intraluminal Device, Via Natural or Artificial Opening Endoscopic NOY HUNG 08/30/2017 [id number] Repair Bladder, Percutaneous Endoscopic Approach NOY HUNG 08/30/2017 [id number] Repair Vagina, Percutaneous Endoscopic Approach NOY HUNG 08/30/2017 [id number] Robotic Assisted Procedure of Trunk Region, Percutaneous Endoscopic Approach NOY HUNG 08/30/2017 [id number] Fluoroscopy of Kidneys, Ureters and Bladder using Low Osmolar Contrast NOY HUNG 08/30/2017 53977 OMENTAL FLAP, INTRA- ABDOMINAL (LIST SEPARATELY IN ADDITION TO CODE FORPRIMARY PROCEDURE) EBEN IRVING 09/12/2017 64301 CHANGE OF CYSTOSTOMY TUBE; NOY CASTRO MD 09/12/2017 62578 UNLISTED LAPAROSCOPY PROCEDURE, BLADDER EBEN IRVING 09/12/2017 52383 UROGRAPHY, RETROGRADE, WITH OR WITHOUT KUB NOY HUNG MD 09/12/2017 44836 INJECTION PROCEDURE FOR CYSTOGRAPHY OR VOIDING URETHROCYSTOGRAPHY NOY HUNG MD 10/12/2017 42319 CYSTOGRAPHY, MINIMUM OF THREE VIEWS, RADIOLOGICAL SUPERVISION AND INTERPRETATION NOY HUNG MD 10/12/2017 Q9967 OMNIPAQUE 300 NOY HUNG MD 10/12/2017 22844 POSTOPERATIVE FOLLOW-UP VISIT, INCLUDED IN GLOBAL SERVICE NOY HUNG MD 10/12/2017 [id number] #23 PERIOPERATIVE VENOUS THROMBOEMBOLISM PROPHYLAXIS NOY HUNG MD 10/19/2017 25382 OMENTAL FLAP, INTRA- ABDOMINAL (LIST SEPARATELY IN ADDITION TO CODE FORPRIMARY PROCEDURE) NOY HUNG MD 10/19/2017 57580 CHANGE OF CYSTOSTOMY TUBE; NOY CASTRO MD 10/19/2017 85442 UNLISTED LAPAROSCOPY PROCEDURE, BLADDER NOY HUNG MD 2017 47770 UROGRAPHY, RETROGRADE, WITH OR WITHOUT KUB NOY HUNG MD 10/19/2017 73418 OMENTAL FLAP, INTRA- ABDOMINAL (LIST SEPARATELY IN ADDITION TO CODE FORPRIMARY PROCEDURE) NOY HUNG MD 10/19/2017 46465 CHANGE OF CYSTOSTOMY TUBE; NOY CASTRO MD 10/19/2017 43456 UNLISTED LAPAROSCOPY PROCEDURE, BLADDER NOY HUNG MD 2017 08271 UROGRAPHY, RETROGRADE, WITH OR WITHOUT KUB NOY HUNG MD 10/19/2017 54582 CYSTOGRAPHY, MINIMUM OF THREE VIEWS, RADIOLOGICAL SUPERVISION AND INTERPRETATION NOY HUNG MD 10/26/2017 25499 CYSTOURETHROSCOPY (SEPARATE PROCEDURE) NOY HUNG MD 12/04/2017 87849 OFFICE OR OTHER OUTPATIENT VISIT FOR THE EVALUATION AND MANAGEMENT OF ANESTABLISHED PATIENT, WHICH R NOY HUNG MD 12/04/2017 97064 INJECTION PROCEDURE FOR CYSTOGRAPHY OR VOIDING URETHROCYSTOGRAPHY NOY HUNG MD 12/04/2017 Q9967 OMNIPAQUE 300 NOY HUNG MD 12/04/2017 28298 UROGRAPHY, RETROGRADE, WITH OR WITHOUT KUB NOY HUNG MD 01/01/2018 05120 OMENTAL FLAP, INTRA- ABDOMINAL (LIST SEPARATELY IN ADDITION TO CODE FORPRIMARY PROCEDURE) EBEN IRVING 01/16/2018 46399 UNLISTED LAPAROSCOPY PROCEDURE, BLADDER NOY HUNG MD 2017 65604 OMENTAL FLAP, INTRA- ABDOMINAL (LIST SEPARATELY IN ADDITION TO CODE FORPRIMARY PROCEDURE) NOY HUNG MD 04/02/2018 95723 CHANGE OF CYSTOSTOMY TUBE; SIMPLE NOY HUNG MD 04/02/2018 70186 UNLISTED LAPAROSCOPY PROCEDURE, BLADDER EBEN IRVING 04/02/2018 Results Test Result Range Type and Screen - 08/30/17 12:00 Blood Type ABO A NRG Blood Type Rh Pos NRG Antibody Screen Sent to Ref Lab Neg BF Creat - 08/31/17 04:33 BF Source Prompt Peritoneal/Abdom/Para Fl NRG CREATININE:MCNC:PT:BODY FLD:QN: 0.7 mg/dL NRG H+H - 08/31/17 04:45 HEMOGLOBIN:SCNC:PT:BLD:QN: 12.4 gm/dL 12.0-16.0 HEMATOCRIT:VFR:PT:BLD:QN:AUTOMATED COUNT 37.5 % 36.0- 47.0 [facility] - 08/31/17 04:45 GFR >60 >=60 GFR NonAfrican Portuguese >60 >=60 AGAP 11 7-16 SODIUM:SCNC:PT:SER/PLAS:QN: 137 mmol/L 136-145 POTASSIUM:SCNC:PT:SER/PLAS:QN: 4.4 mmol/L 3.5-5.1 CHLORIDE:SCNC:PT:SER/PLAS:QN: 103 mmol/L 98-107 CARBON DIOXIDE:SCNC:PT:SER/PLAS:QN: 23 mmol/L 21-32 UREA NITROGEN:MCNC:PT:SER/PLAS:QN: 10 mg/dL 6-20 CREATININE:MCNC:PT:SER/PLAS:QN: 0.8 mg/dL 0.6-1.0 GLUCOSE:MCNC:PT:SER/PLAS:QN: 94 mg/dL 70-110 CALCIUM:MCNC:PT:SER/PLAS:QN: 6.9 mg/dL 8.6-10.2 UREA NITROGEN/CREATININE:MRTO:PT:SER/PLAS:QN: 13.0 10.0- 20.1 Magnesium - 08/31/17 04:45 MAGNESIUM:MCNC:PT:SER/PLAS:QN: 1.6 mg/dL 1.8-2.4 Misc. Order, see notes for description - 09/04/17 13:27 Misc. Result, see notes for description See Attached NRG Encounters ACCT No. Visit Date/Time Discharge Status Pt. Type Provider Facility Loc./Unit Complaint [id number] 01/30/2018 15:15:01 ACT Unknown Juan Diego Ramirez MD [id number] 11/22/2017 10:07:02 11/22/2017 23:59:59 CLS Outpatient NOY HUNG MD [id number] 12/06/2017 07:38:41 ACT Document Registration [id number] 04/18/2018 02:18:23 04/18/2018 23:59:59 DIS Preadmit LELA RAMIREZ [facility] Surgery [id number] 08/30/2017 11:34:00 09/01/2017 11:40:00 DIS Inpatient NOY HUNG [facility]
--- OUTSIDE RECORDS SUMMARY | 2018-06-24 13:18 | XMS REPORT | Clinical Summary ---
Author Author Admin, EDMUNDO Organization [facility] Address Unknown Phone Allergies, Adverse Reactions, [...] MG/24HR PT24 Apply 1 patch daily NICOTINE 29200811162 Active Al Medel MD Active GUAIFENESIN-CODEINE 100-10 MG/5ML SYRP 1 tsp PO q6h PRN cough GUAIFENESIN-CODEINE 49425991299 Active Al Medel MD Active ZITHROMAX Z-NYLA 250 MG TABS 2 today, then 1 daily for 4 days 2013 AZITHROMYCIN 51532163524 No Longer Active Al Medel MD Active MOBIC 15 MG TABS 1 tablet by mouth daily for knee pain MELOXICAM 56655400611 Active Al Medel MD Active LISINOPRIL 20 MG TABS 1 tablet by mouth daily LISINOPRIL 45435079216 Active Al Medel MD Active ZITHROMAX Z-NYLA 250 MG TABS 2 today, then 1 daily for 4 days 2013 ZITHROMAX Z-NYLA 250 MG TABS 9879761 AZITHROMYCIN Inactive Vital Signs Date Name Value [...] Panel - Chemistry sodium, serum 139 mmol/L 191-019 5922/05/21 potassium, serum 4.7 mmol/L 3.5-5.2 chloride, serum [...] 0.60 mg/dL 0.00-1.00 cholesterol, serum 144 mg/dL 905-935 8433/05/21 triglyceride, serum, fasting 102 mg/dL 30-200 HDL [...] 0-19 Encounters Code Encounter Date Provider Facility CPT-30303 Level 3 Est. Patient 10:22:10 CDT Al Medel MD [facility] CPT-42995 Level 4 New Patient 11:23:27 CDT Al Medel MD [facility]
--- OUTSIDE RECORDS SUMMARY | 2018-06-24 13:18 | XMS REPORT | Clinical Summary ---
Author Author Admin, EDMUNDO Organization [facility] Address Unknown Phone Allergies, Adverse [...] MG/24HR PT24 Apply 1 patch daily NICOTINE 16941731421 Active Al Medel MD Active GUAIFENESIN-CODEINE 100-10 MG/5ML SYRP 1 tsp PO q6h PRN cough GUAIFENESIN-CODEINE 95864009088 Active Al Medel MD Active ZITHROMAX Z-NYLA 250 MG TABS 2 today, then 1 daily for 4 days 2013 AZITHROMYCIN 55220863574 No Longer Active Al Medel MD Active MOBIC 15 MG TABS 1 tablet by mouth daily for knee pain MELOXICAM 98020708270 Active Al Medel MD Active LISINOPRIL 20 MG TABS 1 tablet by mouth daily LISINOPRIL 54265096559 Active Al Medel MD Active ZITHROMAX Z-NYLA 250 MG TABS 2 today, then 1 daily for 4 days 2013 ZITHROMAX Z-NYLA 250 MG TABS 2901070 AZITHROMYCIN Inactive Vital Signs Date Name Value [...] Panel - Chemistry sodium, serum 139 mmol/L 545-392 8765/05/21 potassium, serum 4.7 mmol/L 3.5-5.2 chloride, serum [...] 0.60 mg/dL 0.00-1.00 cholesterol, serum 144 mg/dL 546-827 8930/05/21 triglyceride, serum, fasting 102 mg/dL 30-200 HDL [...] 0-19 Encounters Code Encounter Date Provider Facility CPT-45160 Level 3 Est. Patient 10:22:10 CDT Al Medel MD [facility] CPT-86293 Level 4 New Patient 11:23:27 CDT Al Medel MD [facility]
[2018-06-24] MEDS ORDERED: ALLOPURINOL 300 MG TABLET (14:18)
[2018-06-24] MEDS ORDERED: INDOMETHACIN ER 75 MG CAPSULE (14:18)
[2018-06-24] MEDS ORDERED: AMLODIPINE BESYLATE 10 MG TAB (14:18)
[2018-06-24 15:57] LABS: BASOPHILS # (AUTO) 0.1 10^3/uL (0.0-0.1); BASOPHILS % (AUTO) 1 % (0-10); EOSINOPHILS # (AUTO) 0.2 10^3/uL (0.0-0.3); EOSINOPHILS % (AUTO) 2 % (0-10); HEMATOCRIT 44 % (35-52); HEMOGLOBIN 15.8 G/DL (11.5-16.0); LYMPHOCYTES # (AUTO) 3.6 X 10^3 (1.0-4.0); LYMPHOCYTES % (AUTO) 40 % (12-44); MEAN CORPUSCULAR HEMOGLOBIN 35 PG (25-34); MEAN CORPUSCULAR HGB CONC 36 G/DL (32-36); MEAN CORPUSCULAR VOLUME 97 FL (80-99); MEAN PLATELET VOLUME 8.8 FL (7.4-10.4); MONOCYTES # (AUTO) 0.5 X 10^3 (0.0-1.0); MONOCYTES % (AUTO) 6 % (0-12); NEUTROPHILS # (AUTO) 4.6 X 10^3 (1.8-7.8); NEUTROPHILS % (AUTO) 51 % (42-75); PLATELET COUNT 312 10^3/uL (130-400); RED BLOOD COUNT 4.49 10^6/uL (4.35-5.85); RED CELL DISTRIBUTION WIDTH 12.9 % (10.0-14.5)
[2018-06-24 16:17] LABS: ALANINE AMINOTRANSFERASE 25 U/L (0-55); ALKALINE PHOSPHATASE 117 U/L (40-136); AMYLASE 41 U/L (25-125); BILIRUBIN,TOTAL 0.7 MG/DL (0.1-1.0); BUN/CREATININE RATIO 9; CALCIUM 9.4 MG/DL (8.5-10.1); CARBON DIOXIDE 21 MMOL/L (21-32); CHLORIDE 96 MMOL/L (98-107); GFR ESTIMATED > 60; GLUCOSE 118 MG/DL (70-105); LIPASE 91 U/L (8-78); POTASSIUM 3.5 MMOL/L (3.6-5.0); SODIUM 134 MMOL/L (135-145); TOTAL PROTEIN 7.8 GM/DL (6.4-8.2)
[2018-06-24 16:27] LABS: BILIRUBIN,URINE NEGATIVE (NEGATIVE); GLUCOSE, URINE (UA) NEGATIVE (NEGATIVE); KETONES,URINE NEGATIVE (NEGATIVE); LEUKOCYTE ESTERASE ,URINE 1+ (NEGATIVE); NITRITE,URINE NEGATIVE (NEGATIVE); PH,URINE 6.5 (5-9); PROTEIN,URINE NEGATIVE (NEGATIVE); UROBILINOGEN,URINE NORMAL (NORMAL)
--- NOTE | 2018-06-24 16:29 | ED General ---
General Chief Complaint: General Problems/Pain Stated Complaint: LEG PAIN;ABD PAIN Nursing Triage Note: pt presents to er with complaint of generalized pain that starts at her chest and goes down to both her thighs that has been going on for three days. pt states she had the stomach flu on june 07 and has not felt well since. Nursing Sepsis Screen: No Definite Risk History of Present Illness Date Seen by Provider: Jun 24, 2018 Time Seen by Provider: 15:30 Initial Comments 43-year-old female presents for bilateral anterior thigh pain and left upper quadrant pain. She reports for the previous 2 weeks she had persistent nausea and vomiting. She was not treated by healthcare provider. She primarily with use bed rest began feeling better. She has no previous history of GI problems. She has a history of gout and believes that it is starting to flare up again in her left knee. She has started indomethacin and she is regularly on Allopurinol. She reports decreased intake while she was sick for 2 weeks but she has resumed normal appetite at this time. Timing/Duration: Intermittent Severity: Mild Associated Systoms: Denies Symptoms Allergies and Home Medications Allergies Coded Allergies: Penicillins (Verified Allergy, Unknown, 06/24/18) Home Medications Indomethacin 25 Mg Capsule, 25 MG PO BIDPC Prescribed by: TAYLOR RICH on 06/24/18 1639 Tramadol HCl 50 Mg Tablet, 50 MG PO Q8H PRN for PAIN-MODERATE TO SEVERE Prescribed by: TAYLOR RICH on 06/24/18 1639 Patient Home Medication List Home Medication List Reviewed: Yes Review of Systems Review of Systems Constitutional: no symptoms reported, see HPI Gastrointestinal: LUQ, see HPI : No (history of hysterectomy) Musculoskeletal: see HPI, muscle pain (quadriceps bilaterally) All Other Systems Reviewed Negative Unless Noted: Yes Past Hjcakia-Lcntnl-[place] Hx Past Med/Social Hx: Reviewed Nursing Past Med/Soc Hx Patient Social History Alcohol Use: Regular Use Number of Drinks Today: 4 Alcohol Beverage of Choice: Cheap Liquor Recreational Drug Use: No Smoking Status: Current Everyday Smoker Type Used: Cigarettes Recent Foreign Travel: No Contact w/Someone Who Travel: No Recent Infectious Disease Expo: No Recent Hopitalizations: No Immunizations Up To Date Tetanus Booster (TDap): Unknown Seasonal Allergies Seasonal Allergies: No Past Medical History Surgeries: Yes Section, Hysterectomy Respiratory: No Cardiac: Yes Hypertension 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 oz. [id number]; BMI Method:Stated General Appearance: No Apparent Distress, WD/WN HEENT: PERRL/EOMI, TMs Normal, Normal ENT Inspection, Pharynx Normal Neck: Full Range of Motion, Normal Inspection, Non Tender, Supple Respiratory: Chest Non Tender, Lungs Clear, Normal Breath Sounds Cardiovascular: Regular Rate, Rhythm, No Edema, No Murmur, Normal Peripheral Pulses Gastrointestinal: Normal Bowel Sounds, Soft; No Distended, No Guarding, No Hernia, No Mass, No Rebound, No Splenomegaly; Tenderness (trace in the left upper quadrant) Extremity: Normal Capillary Refill, Normal Inspection, Normal Range of Motion ( with pain in bilateral quadriceps. Pain increases with range of motion to the hips or knees. Left knee has trace effusion, full range of motion, no instability. Generalized tenderness in the left knee.) Neurologic/Psychiatric: Alert, Oriented x3, No Motor/Sensory Deficits, Normal Mood/Affect Progress/Results/Core Measures Suspected Sepsis Recent Fever Within 48 Hours: No Infection Criteria Present: None New/Unexplained Altered Menta: No Sepsis Screen: No Definite Risk SIRS Temperature:97.4 Pulse: 81 Respiratory Rate: 20 Laboratory Tests 06/24/18 15:30: White Blood Count 9.0 Blood Pressure 162 /109 Mean: 126 Laboratory Tests 06/24/18 15:30: Creatinine 0.70, Platelet Count 312, Total Bilirubin 0.7 Results/Orders Lab Results Laboratory Tests Test 06/24/18 15:30 06/24/18 16:12 Range/Units White Blood Count 9.0 4.3-11.0 10^3/uL Red Blood Count 4.49 4.35-5.85 10^6/uL Hemoglobin 15.8 11.5-16.0 G/DL Hematocrit 44 35-52 % Mean Corpuscular Volume 97 80-99 FL Mean Corpuscular Hemoglobin 35 H 25-34 PG Mean Corpuscular Hemoglobin Concent 36 32-36 G/DL Red Cell Distribution Width 12.9 10.0-14.5 % Platelet Count 312 130-400 10^3/uL Mean Platelet Volume 8.8 7.4-10.4 FL Neutrophils (%) (Auto) 51 42-75 % Lymphocytes (%) (Auto) 40 12-44 % Monocytes (%) (Auto) 6 0-12 % Eosinophils (%) (Auto) 2 0-10 % Basophils (%) (Auto) 1 0-10 % Neutrophils # (Auto) 4.6 1.8-7.8 X 10^3 Lymphocytes # (Auto) 3.6 1.0-4.0 X 10^3 Monocytes # (Auto) 0.5 0.0-1.0 X 10^3 Eosinophils # (Auto) 0.2 0.0-0.3 10^3/uL Basophils # (Auto) 0.1 0.0-0.1 10^3/uL Sodium Level 134 L 135-145 MMOL/L Potassium Level 3.5 L 3.6-5.0 MMOL/L Chloride Level 96 L 98-107 MMOL/L Carbon Dioxide Level 21 21-32 MMOL/L Anion Gap 17 H 5-14 MMOL/L Blood Urea Nitrogen 6 L 7-18 MG/DL Creatinine 0.70 0.60-1.30 MG/DL Estimat Glomerular Filtration Rate > 60 BUN/Creatinine Ratio 9 Glucose Level 118 H 70-105 MG/DL Calcium Level 9.4 8.5-10.1 MG/DL Corrected Calcium 9.4 8.5-10.1 MG/DL Total Bilirubin 0.7 0.1-1.0 MG/DL Aspartate Amino Transf (AST/SGOT) 66 H 5-34 U/L Alanine Aminotransferase (ALT/SGPT) 25 0-55 U/L Alkaline Phosphatase 117 40-136 U/L Total Protein 7.8 6.4-8.2 GM/DL Albumin 4.0 3.2-4.5 GM/DL Amylase Level 41 25-125 U/L Lipase 91 H 8-78 U/L Urine Color YELLOW Urine Clarity CLEAR Urine pH 6.5 5-9 Urine Specific [place] 1.005 L 1.016-1.022 Urine Protein NEGATIVE NEGATIVE Urine Glucose (UA) NEGATIVE NEGATIVE Urine Ketones NEGATIVE NEGATIVE Urine Nitrite NEGATIVE NEGATIVE Urine Bilirubin NEGATIVE NEGATIVE Urine Urobilinogen NORMAL NORMAL MG/DL Urine Leukocyte Esterase 1+ H NEGATIVE Urine RBC (Auto) NEGATIVE NEGATIVE Urine RBC NONE /HPF Urine WBC 2-5 /HPF Urine Squamous Epithelial Cells 5-10 /HPF Urine Crystals NONE /LPF Urine Bacteria FEW H /HPF Urine Casts NONE /LPF Urine Mucus NEGATIVE /LPF Urine Culture Indicated NO Urine Opiates Screen NEGATIVE NEGATIVE Urine Oxycodone Screen NEGATIVE NEGATIVE Urine Methadone Screen NEGATIVE NEGATIVE Urine Propoxyphene Screen NEGATIVE NEGATIVE Urine Barbiturates Screen NEGATIVE NEGATIVE Ur Tricyclic Antidepressants Screen NEGATIVE NEGATIVE Urine Phencyclidine Screen NEGATIVE NEGATIVE Urine Amphetamines Screen NEGATIVE NEGATIVE Urine Methamphetamines Screen NEGATIVE NEGATIVE Urine Benzodiazepines Screen NEGATIVE NEGATIVE Urine Cocaine Screen NEGATIVE NEGATIVE Urine Cannabinoids Screen NEGATIVE NEGATIVE My Orders Orders - [employer]ILAR[employer]OR ARCHITECTURE ANALYST Amylase (06/24/18 15:39) Cbc With Automated Diff (06/24/18 15:39) Comprehensive Metabolic Panel (06/24/18 15:39) Drug Screen Stat (Urine) (06/24/18 15:39) Lipase (06/24/18 15:39) Ua Culture If Indicated (06/24/18 15:39) Tramadol Tablet (Ultram Tablet) (06/24/18 15:50) Vital Signs/I&O 06/24/18 06/24/18 14:12 17:34 Temp 97.4 Pulse 81 78 Resp 20 14 B/P (MAP) 162/109 (126) 162/109 (126) Pulse Ox 98 97 O2 Delivery Room Air Room Air Capillary Refill : Less Than 3 Seconds Blood Pressure Mean: 126 Departure Impression Primary Impression: Myalgia Additional Impression: Gout Qualified Codes: 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 Decision time for Depature: 16:30 Patient Instructions: Gout (DC), Nausea and Vomiting, Adult (DC) Add. Discharge Instructions: Eat a well-balanced diet, take a women's multivitamin once daily. Increase water intake, one bottle every 2 hours while awake. Continue to take the Indocin twice daily for gout. Do not take any additional ibuprofen or other NSAIDs. You may take tramadol 1 tablet every 8 hours for additional pain relief. Dr. Pedro will be at the [facility] in [place] at [phone] after Feb 1. He is still in his office in [facility] until then. Return to emergency department if symptoms worsen or new, acute health care problems. All discharge instructions reviewed with patient and/or family. Voiced understanding. Scripts Indomethacin (Indomethacin) 25 Mg Capsule 25 MG PO BIDPC, #40 CAP 0 Refills Prov: TAYLOR RICH 06/24/18 Tramadol HCl (Tramadol HCl) 50 Mg Tablet 50 MG PO Q8H PRN for PAIN-MODERATE TO SEVERE, #20 TAB 0 Refills Prov: TAYLOR RICH 06/24/18 TAYLOR RICH Jun 24, 2018 16:29
[2018-06-24] MEDS ORDERED: TRAM50TA2 PO (16:39)
[2018-06-24] MEDS ORDERED: INDO25CA15 PO (16:39)
[2018-06-24 16:44] LABS: AMPHETAMINE SCREEN, URINE NEGATIVE (NEGATIVE); BENZODIAZEPINES SCREEN URINE NEGATIVE (NEGATIVE); COCAINE SCREEN URINE NEGATIVE (NEGATIVE); METHAMPHETAMINE SCREEN URINE S NEGATIVE (NEGATIVE)
[2018-06-24 16:45] LABS: BARBITURATE SCREEN URINE NEGATIVE (NEGATIVE); CANNABINOID SCREEN, URINE NEGATIVE (NEGATIVE); METHADONE STAT NEGATIVE (NEGATIVE); OPIATE SCREEN URINE NEGATIVE (NEGATIVE); OXYCODONE STAT NEGATIVE (NEGATIVE); PROPOXYPHENE STAT NEGATIVE (NEGATIVE); TRICYCLIC ANTIDEPRESSANTS SCRE NEGATIVE (NEGATIVE)
[2018-06-24 16:51] LABS: CLARITY,URINE CLEAR; COLOR,URINE YELLOW
[2018-06-24 16:55] LABS: BACTERIA,URINE FEW /HPF
[2018-06-24 17:34] VITALS: BP 162/109
== END 2018-06-24 17:36 | disposition home or self-care (01) ==
LOC: ER 13:09
DX: M79.10 Myalgia, unspecified site (principal); M10.9 Gout, unspecified; I10 Essential (primary) hypertension; F17.210 Nicotine dependence, cigarettes, uncomplicated; Z98.890 Other specified postprocedural states; Z88.0 Allergy status to penicillin; Z90.710 Acquired absence of both cervix and uterus
CPT/HCPCS: 36415; 80053; 80306; 81000; 82150; 83690; 85025

== ENCOUNTER → 2019-01-02 | Outpatient (CLI) | payer OTHER ==
[~2019-01-02] MED LIST: ALLOPURINOL 300 MG TABLET; AMLODIPINE BESYLATE 10 MG TAB; INDO25CA15 PO; INDOMETHACIN ER 75 MG CAPSULE; TRAM50TA2 PO
--- NOTE | 2019-01-02 13:30 | Diagnostic Imaging Report ---
PROCEDURE: MRI left joint lower extremity without contrast. TECHNIQUE: Multiplanar, multisequence [id number] MRI of the left lower extremity was accomplished. INDICATION: Left knee pain. FINDINGS: There is dzbp-[id number] amount of joint fluid in the left knee. There is heterogeneous signal within the pleural fluid in the lateral gutter which may represent blood or other complex proteinaceous debris. The anterior and posterior cruciate ligaments are intact. There is no evidence of meniscal tear. Articular cartilage is maintained with tiny focal punctate region of T2 signal in the subchondral marrow of the patellar apex. In addition, there are multiple areas of abnormal marrow signal with serpiginous low signal margins on T2-weighted images. T1-weighted images were not obtained. No medial or collateral ligamentous abnormality is identified. Extensor mechanism is intact. IMPRESSION: Mimx-fk-fixoxgkl complex joint fluid with multiple serpiginous bone marrow lesions involving primarily the anterior aspect of lateral femoral condyle and the proximal tibia with extension into the medial tibial plateau. No definite fracture line or volume loss is identified. Overall appearance is most suggestive of bone infarct; however, plain from correlation would be of use. Otherwise, there is no MRI evidence of internal derangement of the left knee. Dictated by: Dictated on workstation # [id number]
== END ==
LOC: RAD 12:16
PROVIDERS: ATTEND Nurse Practitioner
DX: M22.42 Chondromalacia patellae, left knee (principal); M89.9 Disorder of bone, unspecified
CPT/HCPCS: 73721

== ENCOUNTER → 2019-01-07 | Outpatient (CLI) | payer OTHER ==
--- NOTE | 2019-01-07 16:08 | Diagnostic Imaging Report ---
Left knee at 1:37. Indication: Chronic knee pain. 3 views are obtained. There are no prior studies available for comparison. There is no fracture, dislocation or acute bony abnormality evident. The knee joint is fairly well-maintained. The soft tissues are unremarkable. Impression: There is no evidence for an acute bone abnormality. Dictated by: Dictated on workstation # [id number]
== END ==
LOC: RAD FS 13:41
PROVIDERS: ATTEND Nurse Practitioner
DX: M87.059 Idiopathic aseptic necrosis of unspecified femur (principal); M25.562 Pain in left knee
CPT/HCPCS: 73562

== ENCOUNTER → 2019-05-29 | Outpatient (CLI) | payer OTHER ==
--- NOTE | 2019-05-29 14:31 | Diagnostic Imaging Report ---
INDICATION: Cough and chills. PA and lateral views of the chest are obtained. COMPARISON: No previous study is available for comparison at this time. FINDINGS: Heart size and pulmonary vasculature are within normal limits, and the lungs are clear, bilaterally. IMPRESSION: Unremarkable chest. Dictated by: Dictated on workstation # [id number]
== END ==
LOC: RAD 14:16
PROVIDERS: ATTEND Pediatrics
DX: R05 Cough (principal); R68.83 Chills (without fever)
CPT/HCPCS: 71046

== ENCOUNTER 2022-08-22 18:40 | Emergency (ER) | payer OTHER ==
[~2022-08-22] VITALS: Ht 170.2 cm; Wt 72.6 kg
[~2022-08-22 18:40] MED LIST changes: -INDO25CA15 PO; +INDO25CA99 PO; -TRAM50TA2 PO; +TRM50T PO
[2022-08-22] MEDS ORDERED: morphine INJ 10 MG/ML 1ML (SYR OR VIAL) IVP STA (18:50)
[2022-08-22 18:57] LABS: BASOPHILS # (AUTO) 0.1 10^3/uL (0.0-0.1); BASOPHILS % (AUTO) 1 % (0-10); EOSINOPHILS # (AUTO) 0.2 10^3/uL (0.0-0.3); EOSINOPHILS % (AUTO) 2 % (0-10); HEMATOCRIT 47 % (35-52); HEMOGLOBIN 16.6 g/dL (11.5-16.0); LYMPHOCYTES # (AUTO) 4.7 10^3/uL (1.0-4.0); LYMPHOCYTES % (AUTO) 51 % (12-44); MEAN CORPUSCULAR HEMOGLOBIN 34 pg (25-34); MEAN CORPUSCULAR HGB CONC 36 g/dL (32-36); MEAN CORPUSCULAR VOLUME 95 fL (80-99); MEAN PLATELET VOLUME 8.7 fL (9.0-12.2); MONOCYTES # (AUTO) 0.4 10^3/uL (0.0-1.0); MONOCYTES % (AUTO) 5 % (0-12); NEUTROPHILS # (AUTO) 3.8 10^3/uL (1.8-7.8); NEUTROPHILS % (AUTO) 42 % (42-75); PLATELET COUNT 247 10^3/uL (130-400); WHITE BLOOD COUNT 9.2 10^3/uL (4.3-11.0)
[2022-08-22] MEDS ORDERED: NITROGLYCERIN 0.4 MG SL TABS BTL 25'S SL PRN (19:00)
[2022-08-22] MEDS ORDERED: ASPIRIN 81 MG CHEW (CHILDREN'S ASA) PO ONE (19:00)
--- NOTE | 2022-08-22 19:02 | ED Chest Pain ---
General Chief Complaint: Chest Pain Stated Complaint: CHEST PAIN Source: patient History of Present Illness Date Seen by Provider: Aug 22, 2022 Time Seen by Provider: 18:44 Initial Comments 47-year-old female presenting with complaints of aching in her left chest that started last night. She states that it got better but then started up again t his afternoon. She took a baby aspirin 81 mg when the pain started yesterday and again this evening. She states the pain does not radiate anywhere and has been constant since it came back this afternoon. She denies having nausea, vomiting, shortness of breath, any trauma to her chest. She states she has had pain like this previously and had had echocardiogram and cardiology evaluation that was negative. She states that she was not doing anything this afternoon when the pain came back that she was just sitting in a chair. She rates the aching pain is a 4 out of 10. Other than the baby aspirin she has not taken anything for the pain. She does have chronic pain and has a fentanyl patch for that but states they are weaning her off of her pain medicines. Because of this she is trying to find a new physician. Timing/Duration: 1 day Severity/Quality: mild, aching Location: other (left upper chest) Radiation: no radiation Activities at Onset: none Prior CP/Workup: non-cardiac, echocardiography Modifying Factors: improves with other (nothing makes her symptoms better or worse) ASA po SALES OFFICE ASSISTANT: Yes (81 mg) NTG SL SALES OFFICE ASSISTANT: No Associated Symptoms: No abdominal pain; back pain (chronic back pain); No diaphoresis, No dizziness, No edema, No fatigue, No fever/chills, No headache, No heartburn, No nausea/vomiting, No rash, No shortness of breath, No swelling/lump in chest, No syncope, No weakness Allergies and Home Medications Allergies Coded Allergies: Penicillins (Verified Allergy, Unknown, 06/24/18) Patient Home Medication List Home Medication List Reviewed: Yes Indomethacin (Indomethacin) 25 Mg Capsule, 25 MG PO BIDPC Prescribed by: TAYLOR RICH on 06/24/181638 Tramadol HCl (Tramadol HCl) 50 Mg Tablet, 50 MG PO Q8H PRN for PAIN-MODERATE TO SEVERE Prescribed by: TAYLOR RICH on 06/24/181638 [Allopurinol 300 Mg Tablet] , (Reported) Entered as Reported by: FRANSICO RUSHING on 06/24/18 1418 [Amlodipine Besylate 10 Mg Tab] , (Reported) Entered as Reported by: FRANSICO RUSHING on 06/24/18 141 [Indomethacin Er 75 Mg Capsule] , (Reported) Entered as Reported by: FRANSICO RUSHING on 06/24/181417 Review of Systems Review of Systems Constitutional: No chills, No dizziness, No fever EENTM: No Symptoms Reported Respiratory: No Symptoms Reported Cardiovascular: See HPI Gastrointestinal: Denies Nausea, Denies Vomiting Genitourinary: No Symptoms Reported Musculoskeletal: see HPI, back pain (chronic pain) Skin: No rash Psychiatric/Neurological: No Symptoms Reported Past Pqukeeq-Jcsahp-Tsuvjd Hx Patient Social History Tobacco Use?: Yes Tobacco type used: Cigarettes Smoking Status: Current Everyday Smoker Substance use?: No Immunizations Up To Date Tetanus Booster (TDap): Unknown Seasonal Allergies Seasonal Allergies: No Past Medical History Surgery/Hospitalization HX: Hypertension, Hysterectomy, section, Chronic pain Surgeries: Yes Section, Hysterectomy Respiratory: No Cardiac: Yes Hypertension 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 oz. 80.999938ic; BMI Method:Stated General Appearance: No Apparent Distress, WD/WN HEENT: PERRL/EOMI, Pharynx Normal Respiratory: Chest Non Tender, Lungs Clear, Normal Breath Sounds, No Accessory Muscle Use, No Respiratory Distress Cardiovascular: Regular Rate, Rhythm, Normal Peripheral Pulses Gastrointestinal: Normal Bowel Sounds, No Pulsatile Mass, Non Tender, Soft Rectal: Deferred Extremity: Normal Capillary Refill, Normal Inspection, No Pedal Edema Neurologic/Psychiatric: Alert, Oriented x3, parts sales advisor II-XII Norm as Tested Skin: Normal Color, Warm/Dry Images 1 - aching pain in left upper chest Progress/Results/Core Measures Results/Orders Lab Results Laboratory Tests Test 08/22/22 18:52 08/22/22 19:40 08/22/22 20:30 Range/Units White Blood Count 9.2 4.3-11.0 10^3/uL Red Blood Count 4.94 3.80-5.11 10^6/uL Hemoglobin 16.6 H 11.5-16.0 g/dL Hematocrit 47 35-52 % Mean Corpuscular Volume 95 80-99 fL Mean Corpuscular Hemoglobin 34 25-34 pg Mean Corpuscular Hemoglobin Concent 36 32-36 g/dL Red Cell Distribution Width 12.8 10.0-14.5 % Platelet Count 247 130-400 10^3/uL Mean Platelet Volume 8.7 L 9.0-12.2 fL Immature Granulocyte % (Auto) 0 % Neutrophils (%) (Auto) 42 42-75 % Lymphocytes (%) (Auto) 51 H 12-44 % Monocytes (%) (Auto) 5 0-12 % Eosinophils (%) (Auto) 2 0-10 % Basophils (%) (Auto) 1 0-10 % Neutrophils # (Auto) 3.8 1.8-7.8 10^3/uL Lymphocytes # (Auto) 4.7 H 1.0-4.0 10^3/uL Monocytes # (Auto) 0.4 0.0-1.0 10^3/uL Eosinophils # (Auto) 0.2 0.0-0.3 10^3/uL Basophils # (Auto) 0.1 0.0-0.1 10^3/uL Immature Granulocyte # (Auto) 0.0 0.0-0.1 10^3/uL Prothrombin Time 12.7 12.2-14.7 SEC INR Comment 0.9 0.8-1.4 Activated Partial Thromboplast Time 24 24-35 SEC Sodium Level 139 135-145 MMOL/L Potassium Level 3.6 3.6-5.0 MMOL/L Chloride Level 97 L 98-107 MMOL/L Carbon Dioxide Level 29 21-32 MMOL/L Anion Gap 13 5-14 MMOL/L Blood Urea Nitrogen 4 L 7-18 MG/DL Creatinine 0.48 L 0.60-1.30 MG/DL Estimat Glomerular Filtration Rate 117 BUN/Creatinine Ratio 8 Glucose Level 134 H 70-105 MG/DL Calcium Level 8.9 8.5-10.1 MG/DL Corrected Calcium 8.9 8.5-10.1 MG/DL Magnesium Level 1.6 1.6-2.4 MG/DL Total Bilirubin 0.6 0.1-1.0 MG/DL Aspartate Amino Transf (AST/SGOT) 52 H 5-34 U/L Alanine Aminotransferase (ALT/SGPT) 31 0-55 U/L Alkaline Phosphatase 103 40-136 U/L Troponin I < 0.30 < 0.30 <0.30 NG/ML Pro-B-Type Natriuretic Peptide 465.5 H <125.0 PG/ML Total Protein 7.0 6.4-8.2 GM/DL Albumin 4.0 3.2-4.5 GM/DL Lipase 59 8-78 U/L Urine Color YELLOW Urine Clarity CLEAR Urine pH 6.5 5-9 Urine Specific [place] <=1.005 1.016-1.022 Urine Protein NEGATIVE NEGATIVE Urine Glucose (UA) NEGATIVE NEGATIVE Urine Ketones NEGATIVE NEGATIVE Urine Nitrite NEGATIVE NEGATIVE Urine Bilirubin NEGATIVE NEGATIVE Urine Urobilinogen 0.2 < = 1.0 MG/DL Urine Leukocyte Esterase NEGATIVE NEGATIVE Urine RBC (Auto) NEGATIVE NEGATIVE Urine RBC NONE /HPF Urine WBC 0-2 /HPF Urine Squamous Epithelial Cells 5-10 /HPF Urine Crystals NONE /LPF Urine Bacteria NEGATIVE /HPF Urine Casts NONE /LPF Urine Mucus NEGATIVE /LPF Urine Culture Indicated NO My Orders Orders - RUI CHERY MD Cbc With Automated Diff (08/22/22 18:50) Magnesium (08/22/22 18:50) Chest 1 View Ap/Pa Only (08/22/22 18:50) Ekg Tracing (08/22/22 18:50) Comprehensive Metabolic Panel (08/22/22 18:50) Protime With Inr (08/22/22 18:50) Partial Thromboplastin Time (08/22/22 18:50) O2 (08/22/22 18:50) Monitor-Rhythm Ecg Trace Only (08/22/22 18:50) Aspirin Chewable Tablet (Baby Aspirin Ch (08/22/22 19:00) Ed Iv/Invasive Line Start (08/22/22 18:50) Lipase (08/22/22 18:50) Troponin I Fs (08/22/22 18:50) Probnp Fs (08/22/22 18:50) Nitroglycerin 0.4 Mg Btl 25's (Nitrostat (08/22/22 19:00) Morphine Injection (Morphine Injection (08/22/22 18:50) Ua Culture If Indicated (08/22/22 19:38) Troponin I Fs (08/22/22 20:30) Medications Given in ED Current Medications Medications Dose Ordered Sig/Carlos Route Start Time Stop Time Status Last Admin Dose Admin Aspirin 243 mg ONCE ONCE PO 08/22/22 19:00 08/22/22 19:01 DC 08/22/22 19:07 243 MG Nitroglycerin 1 TAB Q 5 MIN X 3 NEEDED PRN SL 08/22/22 19:00 08/22/22 21:35 DC 08/22/22 19:07 0.4 MG Vital Signs/I&O 08/22/22 08/22/22 18:45 19:07 Temp 36.8 36.8 Pulse 80 Resp 14 B/P (MAP) 132/86 (101) Pulse Ox 95 O2 Delivery Room Air Progress Progress Note #1: Progress Note Potential diagnosis of myocardial infarction, pneumonia, chest wall pain, GERD, esophageal spasms, pleurisy. Obtain electrocardiogram to get patient's rate rhythm and evaluate for acute ischemia. Placed on cardiac personnel monitor and initial rate is 78 bpm and sinus rhythm. Obtain 1 view chest x-ray to look for signs of acute pathology. Obtain peripheral IV access and send blood for complete blood count, comprehensive metabolic profile, lipase, troponin, proBNP. Give 243 mg of aspirin to bring her up to a full 324 mg for aspirin dosing. Morphine 4 mg IV x1. Nitroglycerin 0.4 mg sublingual every 5 minutes as needed chest pain. Progress Note #2: Time: 19:31 Progress Note On my personal interpretation review of her 1 view chest x-ray she does not have any acute infiltrate or acute process. 1930 comprehensive metabolic profile did not show any acute significant abnormality on her electrolytes, renal function, hepatic function. Her lipase was normal. Her troponin was less than 0.3 which would be negative for acute myocardial infarction or cardiac damage. Her complete blood count did not show an elevated white blood cell count or low hemoglobin for anemia. I reviewed the radiologist report on the 1 view chest x-ray and they did not see any acute process. Patient told the nurse that her pain was already down to 2 before receiving any medicines. She did also have complained to the nurse that she recently had a urine infection and was not sure if that was cleared up or not. We will add on a urinalysis to look for signs of UTI. Plan on repeat troponin test 2 hours after arrival in ED and if still at <0.3 would be able to safely say she was not having an acute myocardial infarction and that she could have additional work up and testing as an outpatient. Progress Note #3: Progress Note Repeat troponin level was still less than 0.3. Patient states that her pain has faded away. She was not having any further issues currently. She voiced that she is trying to find another provider for primary care as she was dissatisfied with her current provider. She was given information about Dr. Cooper the on- call vat operator if she were to try and see him directly for follow-up and possible stress test. Also given information for [facility] and Dr. Ruano who says she had some options locally to try and contact about follow- up. She can also check with her [employer] insurance to see who they might recommend. Counseled that the tests do not say that she has any plaque buildup in her arteries the chest says that she is not acutely having a heart attack and blockage quadrant artery of her heart currently. She may still have buildup red plaque in her arteries and stress test or a heart cath would be the only way to see that for sure. At this point I felt that she was safe to be discharged home for outpatient follow-up since she was not having any continued pain and she had delta troponin that was negative. Initial ECG Impression Date: Aug 22, 2022 Initial ECG Impression Time: 18:47 Initial ECG Rate: 80 Initial ECG Rhythm: Normal Sinus Initial ECG Comparisson: No Previous ECG Available Comment My personal interpretation and review of her electrocardiogram shows a sinus rhythm with a heart rate of 80 bpm. NV interval 123 ms. She has no acute ST elevation. She does have global T wave flattening. QT interval 386 ms and QTc interval 422 ms. She has no prior tracing available for comparison. Diagnostic Imaging Diagonstic Imaging: Xray Plain Films/CT/US/NM/MRI: chest Comments NAME: TO MATOS MED REC#: [id number] PT STATUS: REG ER : 1975 PHYSICIAN: RUI CHERY MD ADMIT DATE: 08/22/22/ER FS Signed Date of Exam:08/22/22 CHEST 1 VIEW AP/PA ONLY INDICATION: Aching chest pain. COMPARISON: 05/29/2019. FINDINGS: The lungs appear clear without focal airspace opacities or consolidation. There are no findings of an effusion. There is no evidence of a pneumothorax. Heart size and mediastinal contours appear appropriate. Pulmonary vascularity appears within normal limits. There is no acute or suspicious osseous abnormality demonstrated. IMPRESSION: No radiographic evidence of an acute cardiopulmonary process. Dictated by: Dictated on workstation # [id number] Dict: 08/22/221913 Trans: 08/22/221913 [facility] [id number] Interpreted by: ELMER ANAND MD Electronically signed by: ELMER ANAND MD 08/22/221913 Reviewed: Reviewed by Me Departure Impression Primary Impression: Atypical chest pain Disposition: HOME, SELF-CARE Condition: Stable Departure-Patient Inst. Decision time for Depature: 21:28 Referrals: RAFAL RUANO MD, JOHN M MD (PCP/Family) Primary Care Physician ALIZA COOPER MD [facility] Patient Instructions: Chest Pain, Adult ED Add. Discharge Instructions: Your blood work as well as electrocardiogram did not show evidence of an acute heart attack. There were no signs of acute heart damage. There are multiple organs that set close to 1 another and could contribute to chest pain, other than just your heart. This pain may be related to musculoskeletal, chest wall, Lyme, esophagus, stomach, liver, pancreas. Check back with clinic about your symptoms and they may want to have additional testing done as an outpatient. You could also try checking directly with vat operator about possible further testing or stress test. Dr. Cooper is the vat operator senior production planner for [facility] if you want to see him. You could also try checking with the Concrete Boom Pump Operator at . All discharge instructions reviewed with patient and/or family. Voiced understanding. URI CHERY MD Aug 22, 2022 19:01
[2022-08-22 19:13] LABS: PROTHROMBIN TIME PATIENT 12.7 SEC (12.2-14.7)
[2022-08-22 19:14] LABS: INR 0.9 (0.8-1.4)
--- NOTE | 2022-08-22 19:16 | Diagnostic Imaging Report ---
INDICATION: Aching chest pain. COMPARISON: 05/29/2019. FINDINGS: The lungs appear clear without focal airspace opacities or consolidation. There are no findings of an effusion. There is no evidence of a pneumothorax. Heart size and mediastinal contours appear appropriate. Pulmonary vascularity appears within normal limits. There is no acute or suspicious osseous abnormality demonstrated. IMPRESSION: No radiographic evidence of an acute cardiopulmonary process. Dictated by: Dictated on workstation # [id number]
[2022-08-22 19:22] LABS: BILIRUBIN,TOTAL 0.6 MG/DL (0.1-1.0); CALCIUM 8.9 MG/DL (8.5-10.1); CREATININE SERUM 0.48 MG/DL (0.60-1.30); MAGNESIUM 1.6 MG/DL (1.6-2.4); POTASSIUM 3.6 MMOL/L (3.6-5.0)
[2022-08-22 19:52] LABS: BILIRUBIN,URINE NEGATIVE (NEGATIVE); CLARITY,URINE CLEAR; COLOR,URINE YELLOW; GLUCOSE, URINE (UA) NEGATIVE (NEGATIVE); KETONES,URINE NEGATIVE (NEGATIVE); LEUKOCYTE ESTERASE ,URINE NEGATIVE (NEGATIVE); NITRITE,URINE NEGATIVE (NEGATIVE); PH,URINE 6.5 (5-9); PROTEIN,URINE NEGATIVE (NEGATIVE)
[2022-08-22 19:55] LABS: WBC,URINE 0-2 /HPF
[2022-08-22 19:56] LABS: BACTERIA,URINE NEGATIVE /HPF
[2022-08-22 21:36] VITALS: BP 123/83
== END 2022-08-22 21:34 | disposition home or self-care (01) ==
LOC: EDUNIT# 18:40 → ER FS 18:43
DX: R07.89 Other chest pain (principal); F17.210 Nicotine dependence, cigarettes, uncomplicated; Z28.310 Unvaccinated for COVID-19
CPT/HCPCS: 36415; 71045; 80053; 81000; 83690; 83735; 83880; 84484; 85025; 85610; 85730; 93005; 93041

== ENCOUNTER 2022-12-24 09:25 | Emergency (ER) | payer OTHER ==
[~2022-12-24] VITALS: Ht 170.2 cm; Wt 80.5 kg
--- NOTE | 2022-12-24 09:43 | ED General ---
General Chief Complaint: Chest Pain Stated Complaint: CP History of Present Illness Date Seen by Provider: Dec 24, 2022 Time Seen by Provider: 09:36 Initial Comments 7-year-old female with PMH of HTN on Norvasc/active smoker (half pack to 1 pack a day)/on methadone, is here with complaints of cough for the past 2 days with left-sided rib pain, and retrosternal chest pain which began today morning. Patient also has been having bilateral leg swelling which has been going on for couple of months. Denies pain in her legs, redness. Patient denies fever and chills, congestion, runny nose, sick contacts. Allergies and Home Medications Allergies Coded Allergies: Penicillins (Verified Allergy, Unknown, 06/24/18) Patient Home Medication List Home Medication List Reviewed: Yes Indomethacin (Indomethacin) 25 Mg Capsule, 25 MG PO BIDPC Prescribed by: TAYLOR RICH on 06/24/181638 Tramadol HCl (Tramadol HCl) 50 Mg Tablet, 50 MG PO Q8H PRN for PAIN-MODERATE TO SEVERE Prescribed by: TAYLOR RICH on 06/24/18 1639 [Allopurinol 300 Mg Tablet] , (Reported) Entered as Reported by: FRANSICO RUSHING on 06/24/18 141 [Amlodipine Besylate 10 Mg Tab] , (Reported) Entered as Reported by: FRANSICO RUSHING on 06/24/18 141 [Indomethacin Er 75 Mg Capsule] , (Reported) Entered as Reported by: FRANSICO RUSHING on 06/24/181417 Review of Systems Review of Systems Constitutional: no symptoms reported EENTM: no symptoms reported Respiratory: cough Cardiovascular: chest pain Gastrointestinal: no symptoms reported Genitourinary: no symptoms reported Musculoskeletal: no symptoms reported Skin: no symptoms reported Psychiatric/Neurological: No Symptoms Reported Hematologic/Lymphatic: No Symptoms Reported Immunological/Allergic: no symptoms reported Past Yamvqbv-Gjbzge-Gioqax Hx Immunizations Up To Date Tetanus Booster (TDap): Unknown Seasonal Allergies Seasonal Allergies: No Past Medical History Surgery/Hospitalization HX: Hypertension, Hysterectomy, section, Chronic pain Surgeries: Yes Section, Hysterectomy Respiratory: No Cardiac: Yes Hypertension 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 oz. 80.678735ye; 25.00 BMI Method:Stated General Appearance: No Apparent Distress, WD/WN HEENT: PERRL/EOMI, Normal ENT Inspection Neck: Full Range of Motion Respiratory: Chest Non Tender, No Accessory Muscle Use, Rhonci (Very mild) Cardiovascular: Regular Rate, Rhythm, Normal Peripheral Pulses, Other (1+ pitting bilateral pedal edema, no erythema, not warm to touch) Gastrointestinal: Non Tender, Soft Neurologic/Psychiatric: Alert, Oriented x3, No Motor/Sensory Deficits Progress/Results/Core Measures Suspected Sepsis SIRS Temperature: Pulse: Respiratory Rate: Laboratory Tests 12/24/22 09:40: White Blood Count 9.1 Blood Pressure / Mean: Laboratory Tests 12/24/22 09:40: Creatinine 0.64, INR Comment 1.0, Platelet Count 350, Total Bilirubin 0.4 Results/Orders Lab Results Laboratory Tests Test 12/24/22 09:25 12/24/22 09:40 Range/Units Urine Color YELLOW Urine Clarity CLEAR Urine pH 6.0 5-9 Urine Specific Monon 1.020 1.016-1.022 Urine Protein NEGATIVE NEGATIVE Urine Glucose (UA) NEGATIVE NEGATIVE Urine Ketones NEGATIVE NEGATIVE Urine Nitrite NEGATIVE NEGATIVE Urine Bilirubin NEGATIVE NEGATIVE Urine Urobilinogen 0.2 < = 1.0 MG/DL Urine Leukocyte Esterase NEGATIVE NEGATIVE Urine RBC (Auto) NEGATIVE NEGATIVE Urine RBC 0-2 /HPF Urine WBC 5-10 H /HPF Urine Crystals NONE /LPF Urine Bacteria FEW H /HPF Urine Casts PRESENT /LPF Urine Hyaline Casts 2-5 H /LPF Urine Mucus LARGE H /LPF Urine Culture Indicated NO Urine Opiates Screen NEGATIVE NEGATIVE Urine Oxycodone Screen NEGATIVE NEGATIVE Urine Methadone Screen POSITIVE H NEGATIVE Urine Propoxyphene Screen NEGATIVE NEGATIVE Urine Barbiturates Screen NEGATIVE NEGATIVE Ur Tricyclic Antidepressants Screen NEGATIVE NEGATIVE Urine Phencyclidine Screen NEGATIVE NEGATIVE Urine Amphetamines Screen NEGATIVE NEGATIVE Urine Methamphetamines Screen NEGATIVE NEGATIVE Urine Benzodiazepines Screen NEGATIVE NEGATIVE Urine Cocaine Screen NEGATIVE NEGATIVE Urine Cannabinoids Screen POSITIVE H NEGATIVE White Blood Count 9.1 4.3-11.0 10^3/uL Red Blood Count 4.25 3.80-5.11 10^6/uL Hemoglobin 14.1 11.5-16.0 g/dL Hematocrit 43 35-52 % Mean Corpuscular Volume 101 H 80-99 fL Mean Corpuscular Hemoglobin 33 25-34 pg Mean Corpuscular Hemoglobin Concent 33 32-36 g/dL Red Cell Distribution Width 13.2 10.0-14.5 % Platelet Count 350 130-400 10^3/uL Mean Platelet Volume 8.8 L 9.0-12.2 fL Immature Granulocyte % (Auto) 0 % Neutrophils (%) (Auto) 53 42-75 % Lymphocytes (%) (Auto) 41 12-44 % Monocytes (%) (Auto) 5 0-12 % Eosinophils (%) (Auto) 1 0-10 % Basophils (%) (Auto) 1 0-10 % Neutrophils # (Auto) 4.8 1.8-7.8 10^3/uL Lymphocytes # (Auto) 3.7 1.0-4.0 10^3/uL Monocytes # (Auto) 0.4 0.0-1.0 10^3/uL Eosinophils # (Auto) 0.1 0.0-0.3 10^3/uL Basophils # (Auto) 0.1 0.0-0.1 10^3/uL Immature Granulocyte # (Auto) 0.0 0.0-0.1 10^3/uL Prothrombin Time 13.6 12.2-14.7 SEC INR Comment 1.0 0.8-1.4 Activated Partial Thromboplast Time 29 24-35 SEC D-Dimer 0.85 H 0.00-0.49 UG/ML Sodium Level 138 135-145 MMOL/L Potassium Level 3.8 3.6-5.0 MMOL/L Chloride Level 99 98-107 MMOL/L Carbon Dioxide Level 29 21-32 MMOL/L Anion Gap 10 5-14 MMOL/L Blood Urea Nitrogen 5 L 7-18 MG/DL Creatinine 0.64 0.60-1.30 MG/DL Estimat Glomerular Filtration Rate 110 BUN/Creatinine Ratio 8 Glucose Level 114 H 70-105 MG/DL Calcium Level 8.9 8.5-10.1 MG/DL Corrected Calcium 9.1 8.5-10.1 MG/DL Magnesium Level 1.9 1.6-2.4 MG/DL Total Bilirubin 0.4 0.1-1.0 MG/DL Aspartate Amino Transf (AST/SGOT) 16 5-34 U/L Alanine Aminotransferase (ALT/SGPT) 8 0-55 U/L Alkaline Phosphatase 84 40-136 U/L Troponin I < 0.30 <0.30 NG/ML Pro-B-Type Natriuretic Peptide 994.8 H <125.0 PG/ML Total Protein 6.8 6.4-8.2 GM/DL Albumin 3.7 3.2-4.5 GM/DL My Orders Orders - CRISTHIAN QUIROZ MD Continuous Ekg Monitoring (12/24/22 09:43) Ekg Tracing (12/24/22 09:43) Chest 1 View Ap/Pa Only (12/24/22 09:43) Cbc With Automated Diff (12/24/22 09:44) Comprehensive Metabolic Panel (12/24/22 09:44) Drug Screen Stat (Urine) (12/24/22 09:44) Magnesium (12/24/22 09:44) Protime With Inr (12/24/22 09:44) Partial Thromboplastin Time (12/24/22 09:44) Ua Culture If Indicated (12/24/22 09:44) Probnp Fs (12/24/22 09:44) Troponin I Fs (12/24/22 09:44) Fibrin Degradation Products (12/24/22 09:54) Vital Signs/I&O 12/24/22 09:41 Temp 36.1 Pulse 90 Resp 22 B/P (MAP) 130/79 (96) Pulse Ox 95 O2 Delivery Room Air Capillary Refill : Progress Note : Progress Note 1. ACS RULED OUT: - CXR: no acute findings - EKG: non-ischemic - Troponin undetectable - CBC/ CMP: unremarkable - UA/ UDS:positive for methadone and marijuana - BNP is elevated at 994.8 - D-dimer is elevated at 0.85 - Well's score for DVT is 3, moderate. We do not have ultrasound here today, so will order Doppler u/s as out-patient and treat with - ACS Ruled out with negative troponin and EKG - Differential diagnoses for bilateral leg swellin) Side effect of Norvasc medication, 2) CHF, 3) DVT - BNP is 994.8: lasix pprescription 20mg daily for 5 days, until pt is able to get in with PCP for an appointment. Recommended cardiology clinic follow up for ECHO - D-dimer elevated at 0.85, and Well's score: 3, with moderate risk, ordered out-patient Doppler ultrasound of legs since we do not have ultrasound on weekends. Will need to go to [facility] at 7:30 AM to get ultrasound on 12/25/22, or will need to call [facility] in [place] and schedule ultrasound for 12/25/22. - Make PCP appointment with Dr. Bermeo MARCY - Make cardiology appointment MARCY - Return to ER if symptoms worsen and/or shortness of breath develops -The patient was seen in the ED, and treated appropriately to presentation at a specific point in time. Patient is informed that there is a possibility that disease and illness can evolve and change in acuity rapidly or slowly after patient is discharged from the ER. Precautionary advice given to the patient for immediate return to ER if symptoms worsen or do not resolve, and to seek emergen cy care sooner rather than later. Pt also advised on the importance of PCP follow up and compliance with management and follow up plan with PCP and/or specialist, as this is part of the management plan. Pt verbally expressed understanding. ECG EKG : EKG Time: 09:32 Rate: 88 Rhythm: Normal Sinus Intervals: Normal ECG Comparisson: No Previous ECG Available Diagnostic Imaging Diagonstic Imaging: Xray Plain Films/CT/US/NM/MRI: chest Comments [facility] [place], [place] NAME: TO [facility] REC#: [id number] PT STATUS: REG ER : 1975 PHYSICIAN: CRISTHIAN QUIROZ MD ADMIT DATE: 12/24/22/ER FS Signed Date of Exam:12/24/22 CHEST 1 VIEW AP/PA ONLY EXAM: CHEST 1 VIEW AP/PA ONLY INDICATION: Chest pain. COMPARISON: 08/22/2022. FINDINGS: Normal heart size and central pulmonary vascularity. The lungs are clear. No pleural effusion or pneumothorax. No acute osseous findings. No significant change. IMPRESSION: No acute cardiopulmonary findings. Dictated by: Dictated on workstation # [id number] Dict: 12/24/22 1004 Trans: 12/24/22 1015 [facility] [id number] Interpreted by: SANDRINE OLIVEIRA MD Electronically signed by: SANDRINE OLIVEIRA MD 12/24/22 1015 Departure Impression Primary Impression: Elevated d-dimer Additional Impressions: Ruled out for myocardial infarction Elevated brain natriuretic peptide (BNP) level Disposition: 01 HOME, SELF-CARE Condition: Stable Departure-Patient Inst. Referrals: RICARDO CURTIS MD (PCP/Family) Primary Care Physician Patient Instructions: CHF, Deep Vein Thrombosis (DVT) ED, Heart Healthy Diet Add. Discharge Instructions: - ACS Ruled out with negative troponin and EKG - Differential diagnoses for bilateral leg swellin) Side effect of Norvasc medication, 2) CHF, 3) DVT - BNP is 994.8: lasix pprescription 20mg daily for 5 days, until pt is able to get in with PCP for an appointment. Recommended cardiology clinic follow up for ECHO - D-dimer elevated at 0.85, and Well's score: 3, with moderate risk, ordered out-patient Doppler ultrasound of legs since we do not have ultrasound on weekends. Will need to go to [facility] at 7:30 AM to get ultrasound on 12/25/22, or will need to call [facility] in [place] and schedule ultrasound for 12/25/22. - Make PCP appointment with Dr. Bermeo MARCY - Make cardiology appointment MARCY - Return to ER if symptoms worsen and/or shortness of breath develops All discharge instructions reviewed with patient and/or family. Voiced understanding. Scripts Furosemide (Lasix) 20 Mg Tablet 20 MG PO DAILY for 5 Days, #10 TAB Prov: CRISTHIAN QUIROZ MD 12/24/22 Furosemide (Lasix) 20 Mg Tablet 20 MG PO DAILY for 5 Days, #5 TAB Prov: CRISTHIAN QUIROZ MD 12/24/22 CRISTHIAN QUIROZ MD Dec 24, 2022 09:43
[2022-12-24 09:48] LABS: BASOPHILS # (AUTO) 0.1 10^3/uL (0.0-0.1); BASOPHILS % (AUTO) 1 % (0-10); EOSINOPHILS # (AUTO) 0.1 10^3/uL (0.0-0.3); EOSINOPHILS % (AUTO) 1 % (0-10); HEMATOCRIT 43 % (35-52); HEMOGLOBIN 14.1 g/dL (11.5-16.0); LYMPHOCYTES # (AUTO) 3.7 10^3/uL (1.0-4.0); LYMPHOCYTES % (AUTO) 41 % (12-44); MEAN CORPUSCULAR HEMOGLOBIN 33 pg (25-34); MEAN CORPUSCULAR HGB CONC 33 g/dL (32-36); MEAN CORPUSCULAR VOLUME 101 fL (80-99); MEAN PLATELET VOLUME 8.8 fL (9.0-12.2); MONOCYTES # (AUTO) 0.4 10^3/uL (0.0-1.0); MONOCYTES % (AUTO) 5 % (0-12); NEUTROPHILS # (AUTO) 4.8 10^3/uL (1.8-7.8); NEUTROPHILS % (AUTO) 53 % (42-75); PLATELET COUNT 350 10^3/uL (130-400); WHITE BLOOD COUNT 9.1 10^3/uL (4.3-11.0)
[2022-12-24 09:50] LABS: BILIRUBIN,URINE NEGATIVE (NEGATIVE); CLARITY,URINE CLEAR; COLOR,URINE YELLOW; GLUCOSE, URINE (UA) NEGATIVE (NEGATIVE); KETONES,URINE NEGATIVE (NEGATIVE); LEUKOCYTE ESTERASE ,URINE NEGATIVE (NEGATIVE); NITRITE,URINE NEGATIVE (NEGATIVE); PROTEIN,URINE NEGATIVE (NEGATIVE)
[2022-12-24 09:54] LABS: BACTERIA,URINE FEW /HPF; RBC,URINE 0-2 /HPF
[2022-12-24 09:58] LABS: PROTHROMBIN TIME PATIENT 13.6 SEC (12.2-14.7)
[2022-12-24 10:01] LABS: CANNABINOID SCREEN, URINE POSITIVE (NEGATIVE); METHADONE STAT POSITIVE (NEGATIVE)
[2022-12-24 10:02] LABS: AMPHETAMINE SCREEN, URINE NEGATIVE (NEGATIVE); BARBITURATE SCREEN URINE NEGATIVE (NEGATIVE); BENZODIAZEPINES SCREEN URINE NEGATIVE (NEGATIVE); COCAINE SCREEN URINE NEGATIVE (NEGATIVE); OPIATE SCREEN URINE NEGATIVE (NEGATIVE); OXYCODONE STAT NEGATIVE (NEGATIVE); PROPOXYPHENE STAT NEGATIVE (NEGATIVE); TRICYCLIC ANTIDEPRESSANTS SCRE NEGATIVE (NEGATIVE)
[2022-12-24 10:05] LABS: BUN/CREATININE RATIO 8; CARBON DIOXIDE 29 MMOL/L (21-32); CHLORIDE 99 MMOL/L (98-107); CREATININE SERUM 0.64 MG/DL (0.60-1.30); GFR ESTIMATED 110; GLUCOSE 114 MG/DL (70-105); POTASSIUM 3.8 MMOL/L (3.6-5.0); SODIUM 138 MMOL/L (135-145)
[2022-12-24 10:06] LABS: ALANINE AMINOTRANSFERASE 8 U/L (0-55); ALBUMIN 3.7 GM/DL (3.2-4.5); ALKALINE PHOSPHATASE 84 U/L (40-136); BILIRUBIN,TOTAL 0.4 MG/DL (0.1-1.0); CALCIUM 8.9 MG/DL (8.5-10.1); MAGNESIUM 1.9 MG/DL (1.6-2.4); TOTAL PROTEIN 6.8 GM/DL (6.4-8.2)
--- NOTE | 2022-12-24 10:06 | Diagnostic Imaging Report ---
EXAM: CHEST 1 VIEW AP/PA ONLY INDICATION: Chest pain. COMPARISON: 08/22/2022. FINDINGS: Normal heart size and central pulmonary vascularity. The lungs are clear. No pleural effusion or pneumothorax. No acute osseous findings. No significant change. IMPRESSION: No acute cardiopulmonary findings. Dictated by: Dictated on workstation # [id number]
[2022-12-24] MEDS ORDERED: FURO-125 PO ×2 (11:08→11:14)
[2022-12-24] MEDS ORDERED: ENOXAPARIN 80 MG/0.8 ML (LOVENOX) SYR SC ONE (11:30)
[2022-12-24 11:50] VITALS: BP 131/79
== END 2022-12-24 11:50 | disposition home or self-care (01) ==
LOC: EDUNIT# 09:25 → ER FS 09:26
DX: R79.1 Abnormal coagulation profile (principal); R79.89 Other specified abnormal findings of blood chemistry; R07.2 Precordial pain; F17.210 Nicotine dependence, cigarettes, uncomplicated; I10 Essential (primary) hypertension; Z79.899 Other long term (current) drug therapy
CPT/HCPCS: 36415; 71045; 80053; 80306; 81000; 83735; 83880; 84484; 85025; 85379; 85610; 85730; 93005